=== PATIENT | female | born 1995 | race American Indian/Alaskan Native ===

== ENCOUNTER 2017-01-24 16:18 | Emergency (ER) | payer BC, OTHER ==
--- NOTE | 2017-01-24 17:11 | EDM.PDOC ---
ED HPI ENT - General Chief Complaint: ENT Problem Stated Complaint: TOOTH PAIN Time Seen by Provider: 01/24/17 16:56 Source of Information: Reports: Patient History Limitations: Reports: No limitations - History of Present Illness INITIAL COMMENTS - FREE TEXT/NARRATIVE: Patient presents for evaluation and treatment of the chipped tooth. Patient was eating some toast this morning when she chipped her tooth. She states that she felt something hard come out of the tooth. She states that since then she has developed severe shooting pain to her right upper molars. States the pain is shooting up into her ear. She states that drinking cold beverages improve the pain. She has tried aleve and clove oil without any relief. She did try calling her dentist both only able to get into a dentist in [place] next week. She reports nausea from the pain. She denies any fevers, chills or vomiting. Patient is concerned she may have a dental infection. 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 Denies: Vomiting ED EXAM, ENT - Physical Exam Exam: See Below Exam Limited By: No limitations General Appearance: alert, WD/WN, no apparent distress Ears: normal external exam, normal canal, hearing grossly normal, normal TMs Nose: normal inspection Mouth/Throat: Normal inspection, Normal lips, Normal oropharynx, Dental pain, Dental trauma (#2 and #3 are broken; no abscess appreciated, ). No: Dental abcess Respiratory/Chest: no respiratory distress, lungs clear, normal breath sounds Cardiovascular: normal peripheral pulses, regular rate, rhythm, no murmur Neurological: alert, oriented, normal cognition Psychiatric: normal affect, normal mood Skin: Warm, Dry, Normal color Course - Vital Signs Last Recorded V/S: Last Vital Signs Temp 36.6 C 01/24/17 16:26 Pulse 81 01/24/17 16:26 Resp 16 01/24/17 16:26 BP 126/83 01/24/17 16:26 Pulse Ox 97 01/24/17 16:26 Departure - Departure Time of Disposition: 17:06 Disposition: Home, Self-Care 01 Condition: good Clinical Impression: Pain, dental, Broken tooth Prescriptions: Acetaminophen/oxyCODONE [Percocet 325-5 MG] 1 tab PO Q6H PRN #15 tablet PRN Reason: Pain Chlorhexidine Gluconate [Paroex] 473 ml MM BID #1 bottle Instructions: Tooth Injuries, [id number] Referrals: PCP,Not In Area [Primary Care Provider] - Forms: ED Department Discharge Additional Instructions: Follow-up with dental as soon as you are able. Take OTC ibuprofen 600mg every 6 hours. Take the percocet 1/2 to 1 tab PO every 4-6 hours as needed for severe pain. No driving or operating machinery within 12 hours of taking the percocet. Take as few of the percocet as needed to control your pain as percocet can be habit forming. Mouth wash 15mls swish for 30 sec and spit. Use bid. Please return to the ER should your symptoms change or worsen. In particular return for vomiting, fevers, swelling to the face or any other concerning symptom.
== END 2017-01-24 17:30 | disposition home or self-care (01) ==
LOC: JD.ED 16:18
CPT/HCPCS: 99283

== ENCOUNTER 2018-04-20 01:28 | Inpatient (IN) | payer BC ==
[2018-04-20] MEDS ORDERED: diphenhydrAMINE 50 MG/ML SDV IVPUSH PRN (02:04)
[2018-04-20] MEDS ORDERED: ePHEDrine 50 MG/ML SDV IVPUSH PRN (02:04)
[2018-04-20] MEDS ORDERED: Ondansetron 4 MG/2 ML SDV IVPUSH PRN (02:04)
[2018-04-20] MEDS ORDERED: fentaNYL 100 MCG/2 ML SDV EPIDUR PRN (02:04)
[2018-04-20] MEDS ORDERED: Sodium Chloride 0.9% 10 ML Syringe FLUSH PRN (02:09)
[2018-04-20] MEDS ORDERED: Oxytocin/Lactated Ringers 10 UNIT/1,000 ML BAG IV SCH (02:15)
[2018-04-20] MEDS ORDERED: Bupivacaine/fentaNYL/NS 100 ML Bag EPIDUR SCH (02:15)
--- NOTE | 2018-04-20 02:32 | PCM.PREANE ---
Preanesthetic Assessment - Anesthesia/Transfusion/Family Hx Anesthesia History: Prior Anesthesia Without Reaction Family History of Anesthesia Reaction: No - Review of Systems General: No Symptoms Pulmonary: No Symptoms Cardiovascular: No Symptoms Gastrointestinal: No Symptoms Neurological: No Symptoms Other: Reports: None - Physical Assessment Pulse: 81 O2 Sat by Pulse Oximetry: 98 Respiratory Rate: 16 Blood Pressure: 124/80 Height: 1.63 m Weight: 102.512 kg ASA Class: 2 Mental Status: Alert & Oriented x3 Airway Class: Mallampati = 2 Dentition: Reports: Missing Tooth/Teeth Thyro-Mental Finger Breadths: 3 Mouth Opening Finger Breadths: 3 ROM/Head Extension: Full Lungs: Clear to Auscultation, Normal Respiratory Effort Cardiovascular: Regular Rate, Regular Rhythm - Lab Values: Labs pending. Will review prior to epidural. 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 - HOME MEDS Home Medications: Home Meds Iron 5 mg PO DAILY 08/28/15 [History] Vit with Ca/FA/Iron [ Plus Iron] 1 each PO DAILY #30 tablet 03/10 [Rx] Acetaminophen/oxyCODONE [Percocet 325-5 MG] 1 tab PO Q6H PRN #15 tablet [Rx] Chlorhexidine Gluconate [Paroex] 473 ml MM BID #1 bottle 01/24/17 [Rx] - CURRENT (IN HOUSE) MEDS Current Meds: Current Medications Diphenhydramine HCl (Benadryl) 25 mg IVPUSH Q6H PRN PRN Reason: Pruritis Ephedrine Sulfate (Ephedrine Sulfate) 5 mg IVPUSH ASDIRECTED PRN PRN Reason: Hypotension Fentanyl (Sublimaze) 100 mcg EPIDUR ONETIME PRN PRN Reason: Pain Fentanyl/Bupivacaine HCl (Fentanyl/Bupivacaine/Ns 2 Mcg-0.125% 100 Ml) 100 ml EPIDUR ASDIRECTED [facility] Lactated Ringer's (Ringers, Lactated) 1,000 mls @ 100 mls/hr IV ASDIRECTED [facility] Oxytocin/Lactated Ringer's (Pitocin In Lr 10 Units/1,000 Ml) 10 unit in 1,000 mls @ 500 mls/hr IV .CONTINUOUS [facility] Ondansetron HCl (Zofran) 4 mg IVPUSH ONETIME PRN PRN Reason: Nausea/Vomiting Sodium Chloride (Saline Flush) 10 ml FLUSH ASDIRECTED PRN PRN Reason: Keep Vein Open
[2018-04-20] MEDS: Lactated Ringers 1,000 ML IV SCH ×3 (02:47→06:34)
--- NOTE | 2018-04-20 09:01 | PCM.LDHP ---
L&D History of Present Illness - General Date of Service: 04/20/18 Admit Problem/Dx: Patient Status Order with Admit Dx/Problem 04/20/18 02:09 Patient Status [ADT] Routine Admission Diagnosis/Problem Admission Diagnosis/Problem Source of Information: Patient History Limitations: Reports: No Limitations - History of Present Illness Introduction:: 22-year-old GRAHAM 04/22/18 at 39 weeks and 5 days gestation presented to labor and delivery in active labor 5 cm dilated contractions every 3 minutes lasting approximate 60 seconds blood type is O+ antibody screen negative rubella immune RPR nonreactive group B strep not detected on 03/21/18. The hemoglobin on 02/12/1810.9. Plan delivery. Location, : Reports: Abdomen, Lower back Quality: Reports: Ache, Pressure Pain Score: 5 Improves with: Reports: None Worsens with: Reports: None Associated Symptoms: Reports: N - Related Data Allergies/Adverse Reactions: Allergies Allergy/AdvReac Type Severity Reaction Status Date / Time No Known Allergies Allergy Verified 08/28/15 22:45 Home Medications: Home Meds Iron 5 mg PO DAILY 08/28/15 [History] Vit with Ca/FA/Iron [ Plus Iron] 1 each PO DAILY #30 tablet 03/10 [Rx] Acetaminophen/oxyCODONE [Percocet 325-5 MG] 1 tab PO Q6H PRN #15 tablet [Rx] Chlorhexidine Gluconate [Paroex] 473 ml MM BID #1 bottle 01/24/17 [Rx] Past Medical History HEENT History: Reports: None Cardiovascular History: Reports: None Respiratory History: Reports: None Gastrointestinal History: Reports: None Genitourinary History: Reports: UTI, Recurrent Other Genitourinary History: No UTIs with this , yet, many prior and with prior pregnancies. 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 No depression s/s this . Endocrine/Metabolic History: Reports: None Hematologic History: Reports: Anemia, Other (See Below) Other Hematologic History: Received an Iron Infusion @ [place] this secondary to anemia. Immunologic History: Reports: None Oncologic (Cancer) History: Reports: None Dermatologic History: Reports: None - Past Surgical History Head Surgeries/Procedures: Reports: None HEENT Surgical History: Reports: Oral Surgery Other HEENT Surgeries/Procedures: [place] teeth extracted 2009 Cardiovascular Surgical History: Reports: None Respiratory Surgical History: Reports: None GI Surgical History: Reports: None Female Surgical History: Reports: None Endocrine Surgical History: Reports: None Neurological Surgical History: Reports: None Musculoskeletal Surgical History: Reports: None Oncologic Surgical History: Reports: None Dermatological Surgical History: Reports: None Social & Family History - Family History Family Medical History: Noncontributory - Tobacco Use Smoking Status *Q: Former Smoker Years of Tobacco use: 2 Packs/Tins Daily: 0.1 Used Tobacco, but Quit: Yes Month/Year Tobacco Last Used: 06/2017 Second Hand Smoke Exposure: No - Caffeine Use Caffeine Use: Reports: Coffee, Soda Other Caffeine Use: Occasional - Recreational Drug Use Recreational Drug Use: No H&P Review of Systems - Review of Systems: Review Of Systems: See Below General: Reports: No Symptoms HEENT: Reports: No Symptoms Pulmonary: Reports: No Symptoms Cardiovascular: Reports: No Symptoms Gastrointestinal: Reports: No Symptoms Genitourinary: Reports: No Symptoms Musculoskeletal: Reports: No Symptoms Skin: Reports: No Symptoms Psychiatric: Reports: No Symptoms Neurological: Reports: No Symptoms Hematologic/Lymphatic: Reports: No Symptoms Immunologic: Reports: No Symptoms L&D Exam - Exam Exam: See Below - Vital Signs Vital Signs: Last Vital Signs Temp Pulse 81 04/20/18 02:32 Resp 16 04/20/18 02:32 BP 124/80 04/20/18 02:32 Pulse Ox 98 04/20/18 02:32 Weight: 226 lb - OB Specific Fundal Height In cm: 38 Contraction Duration (sec): 60 Contraction Frequency (min): 3 Contraction Intensity: Moderate to Strong Movement: Active Heart Tones: Present Heart Tones per Min: 135 Heart Rate (FHR) Variability: Moderate (6-25 bmp) Presentation: Vertex - Maldonado Score Maldonado Score Cervix Position: Anterior Maldonado Score Consistency: Soft Maldonado Score Effacement: >80% Maldonado Score Dilation: > 5 cm Maldonado Score 's Station: -1 ,0 Maldonado Score Total: 12 - Exam General: Alert, Oriented HEENT: Conjunctiva Clear, Mucosa Moist & [place], Posterior Pharynx Clear, TMs Clear, PERRLA Neck: Supple, Trachea Midline Lungs: Clear to Auscultation, Normal Respiratory Effort Cardiovascular: Regular Rate, Regular Rhythm GI/Abdominal Exam: Normal Bowel Sounds, Soft, Non-Tender, No Organomegaly Genitourinary: Normal external exam, Normal bimanual exam, Normal speculum exam Back Exam: Full Range of Motion Extremities: Normal Inspection, Normal Range of Motion, Non-Tender, No Pedal Edema, Normal Capillary Refill Skin: Warm, Dry, Intact Neurological: Reflexes Equal Bilateral Psychiatric: Alert, Normal Affect, Normal Mood - Patient Data Lab Results Last 24 hrs: Laboratory Results - last 24 hr 04/20/18 Range/Units 02:15 WBC 10.66 H (3.98-10.04) K/mm3 RBC 4.72 (3.98-5.22) M/mm3 Hgb 10.1 L (11.2-15.7) gm/L Hct 32.7 L (34.1-44.9) % MCV 69.3 L (79.4-94.8) fl MCH 21.4 L (25.6-32.2) pg MCHC 30.9 L (32.2-35.5) g/dl RDW Std Deviation 46.9 H (36.4-46.3) fL Plt Count 315 (182-369) K/mm3 MPV 10.8 (9.4-12.3) fl Neut % (Auto) 75.9 H (34.0-71.1) % Lymph % (Auto) 14.1 L (19.3-51.7) % [place] % (Auto) 8.4 (4.7-12.5) % Eos % (Auto) 1.2 (0.7-5.8) Baso % (Auto) 0.1 (0.1-1.2) % Neut # (Auto) 8.09 H (1.56-6.13) K/mm3 Lymph # (Auto) 1.50 (1.18-3.74) K/mm3 [place] # (Auto) 0.90 H (0.24-0.36) K/mm3 Eos # (Auto) 0.13 (0.04-0.36) K/mm3 Baso # (Auto) 0.01 (0.01-0.08) K/mm3 Manual Slide Review Abnormal smear Result Diagrams: 04/20/18 02:15 - Problem List (1) 39 weeks gestation of SNOMED Code(s): 21863508 ICD Code: Z3A.39 - 39 WEEKS GESTATION OF Status: Acute Current Visit: Yes Problem List Initiated/Reviewed/Updated: No Orders Last 24hrs: Active Orders 24 hr Category Date Time Status Patient Status [ADT] Routine ADT 04/20/18 02:09 Active Activity as Tolerated [RC] PFP Care 04/20/18 02:09 Active Communication Order [RC] ASDIRECTED Care 04/20/18 02:09 Active Heart Tones [RC] ASDIRECTED Care 04/20/18 02:10 Active Notify Provider [RC] ASDIRECTED Care 04/20/18 02:04 Active Notify Provider [RC] PFP Care 04/20/18 02:09 Active Notify Provider [RC] PRN Care 04/20/18 02:09 Active Peripheral IV Care [RC] . DIRECTED Care 04/20/18 02:10 Active Vital Signs [RC] PER UNIT ROUTINE Care 04/20/18 02:09 Active BLOOD BANK HOLD SPECIMEN [BBK] Routine Lab 04/20/18 02:09 Ordered Bupivacaine/fentaNYL/NS [fentaNYL/Bupivacaine/NS 2 MCG- Med 04/20/18 02:15 Active 0.125% 100 ML] 100 ml EPIDUR ASDIRECTED Lactated Ringers [Ringers, Lactated] 1,000 ml Med 04/20/18 02:15 Active IV ASDIRECTED Ondansetron [Zofran] Med 04/20/18 02:04 Active 4 mg IVPUSH ONETIME PRN Oxytocin/Lactated Ringers [Pitocin in LR 10 Units/1,000 Med 04/20/18 02:15 Active ML] 10 unit in 1,000 ml IV .CONTINUOUS Sodium Chloride 0.9% [Saline Flush] Med 04/20/18 02:09 Active 10 ml FLUSH ASDIRECTED PRN diphenhydrAMINE [Benadryl] Med 04/20/18 02:04 Active 25 mg IVPUSH Q6H PRN ePHEDrine [ePHEDrine Sulfate] Med 04/20/18 02:04 Active 5 mg IVPUSH ASDIRECTED PRN fentaNYL [Sublimaze] Med 04/20/18 02:04 Active 100 mcg EPIDUR ONETIME PRN Electronic Heart Tones Ext w TOCO [WOMSER] Oth 04/20/18 02:09 Ordered Routine Electronic Heart Tones Internal [WOMSER] Per Unit Ot 04/20/18 02:09 Ordered Routine Peripheral IV Insertion Adult [OM.PC] Routine Ot 04/20/18 02:09 Ordered Resuscitation Status Routine Resus Stat 04/20/18 02:09 Ordered Medication Orders Diphenhydramine HCl (Benadryl) 25 mg IVPUSH Q6H PRN PRN Reason: Pruritis Ephedrine Sulfate (Ephedrine Sulfate) 5 mg IVPUSH ASDIRECTED PRN PRN Reason: Hypotension Fentanyl (Sublimaze) 100 mcg EPIDUR ONETIME PRN PRN Reason: Pain Last Admin: 04/20/18 04:04 Dose: 100 mcg Fentanyl/Bupivacaine HCl (Fentanyl/Bupivacaine/Ns 2 Mcg-0.125% 100 Ml) 100 ml EPIDUR ASDIRECTED [facility] Last Admin: 04/20/18 04:04 Dose: 100 ml Lactated Ringer's (Ringers, Lactated) 1,000 mls @ 100 mls/hr IV ASDIRECTED LANDON Last Admin: 04/20/18 06:34 Dose: 100 mls/hr Infusion: 04/20/18 04:24 Dose: 999 mls/hr Admin: 04/20/18 03:23 Dose: 999 mls/hr Infusion: 04/20/18 03:23 Dose: 999 mls/hr Admin: 04/20/18 02:47 Dose: 999 mls/hr Oxytocin/Lactated Ringer's (Pitocin In Lr 10 Units/1,000 Ml) 10 unit in 1,000 mls @ 500 mls/hr IV .CONTINUOUS [facility] Ondansetron HCl (Zofran) 4 mg IVPUSH ONETIME PRN PRN Reason: Nausea/Vomiting Sodium Chloride (Saline Flush) 10 ml FLUSH ASDIRECTED PRN PRN Reason: Keep Vein Open Assessment/Plan Comment:: Plan delivery
--- NOTE | 2018-04-20 09:06 | PCM.DEL ---
L & D Note - General Info Date of Service: 04/20/18 Mother's Due Date: 04/22/18 - Delivery Note Labor: Spontaneous Delivery Outcome: Livebirth (Male liveborn 04/20/18 at 0813 hrs. male liveborn 30 /8/50 grams 8 pounds 7.8 ounces Apgars 8/9) Infant Delivery Method: Spontaneous Vaginal Delivery-Single Delivery Mode: Spontaneous Presentation: Left Occiput Anterior (ANA) Nuchal Cord: Present (Times one reduced over shoulder) Anesthesia Type: Epidural Episiotomy Type: None Laceration: None Placenta: Intact, Spontaneous (0815 hrs. Schultze intact discarded) Cord: 3 Vessels Estimated Blood Loss: 250 Resuscitation Needed: No : Suctioned, Bulb Syringe, Stimulated, Warmed, [place] Used, Warmer Used Provider: Shreyas James Score 1 min: 8 Score 5 min: 9 - General Info Date of Service: 04/20/18 Functional Status: Reports: Pain Controlled - Review of Systems General: Reports: No Symptoms HEENT: Reports: No Symptoms Pulmonary: Reports: No Symptoms Cardiovascular: Reports: No Symptoms Gastrointestinal: Reports: No Symptoms Genitourinary: Reports: No Symptoms Musculoskeletal: Reports: No Symptoms Skin: Reports: No Symptoms Neurological: Reports: No Symptoms Psychiatric: Reports: No Symptoms - Patient Data Vitals - Most Recent: Last Vital Signs Temp Pulse 81 04/20/18 02:32 Resp 16 04/20/18 02:32 BP 124/80 04/20/18 02:32 Pulse Ox 98 04/20/18 02:32 Weight - Most Recent: 226 lb I&O - Last 24 Hours: Intake & Output 04/19/18 04/20/18 04/20/18 22:59 06:59 14:59 Intake Total 1999 Balance 1999 Lab Results Last 24 Hours: Laboratory Results - last 24 hr 04/20/18 Range/Units 02:15 WBC 10.66 H (3.98-10.04) K/mm3 RBC 4.72 (3.98-5.22) M/mm3 Hgb 10.1 L (11.2-15.7) gm/L Hct 32.7 L (34.1-44.9) % MCV 69.3 L (79.4-94.8) fl MCH 21.4 L (25.6-32.2) pg MCHC 30.9 L (32.2-35.5) g/dl RDW Std Deviation 46.9 H (36.4-46.3) fL Plt Count 315 (182-369) K/mm3 MPV 10.8 (9.4-12.3) fl Neut % (Auto) 75.9 H (34.0-71.1) % Lymph % (Auto) 14.1 L (19.3-51.7) % [place] % (Auto) 8.4 (4.7-12.5) % Eos % (Auto) 1.2 (0.7-5.8) Baso % (Auto) 0.1 (0.1-1.2) % Neut # (Auto) 8.09 H (1.56-6.13) K/mm3 Lymph # (Auto) 1.50 (1.18-3.74) K/mm3 [place] # (Auto) 0.90 H (0.24-0.36) K/mm3 Eos # (Auto) 0.13 (0.04-0.36) K/mm3 Baso # (Auto) 0.01 (0.01-0.08) K/mm3 Manual Slide Review Abnormal smear Med Orders - Current: Current Medications Diphenhydramine HCl (Benadryl) 25 mg IVPUSH Q6H PRN PRN Reason: Pruritis Ephedrine Sulfate (Ephedrine Sulfate) 5 mg IVPUSH ASDIRECTED PRN PRN Reason: Hypotension Fentanyl (Sublimaze) 100 mcg EPIDUR ONETIME PRN PRN Reason: Pain Last Admin: 04/20/18 04:04 Dose: 100 mcg Fentanyl/Bupivacaine HCl (Fentanyl/Bupivacaine/Ns 2 Mcg-0.125% 100 Ml) 100 ml EPIDUR ASDIRECTED [facility] Last Admin: 04/20/18 04:04 Dose: 100 ml Lactated Ringer's (Ringers, Lactated) 1,000 mls @ 100 mls/hr IV ASDIRECTED [facility] Last Admin: 04/20/18 06:34 Dose: 100 mls/hr Oxytocin/Lactated Ringer's (Pitocin In Lr 10 Units/1,000 Ml) 10 unit in 1,000 mls @ 500 mls/hr IV .CONTINUOUS [place] Ondansetron HCl (Zofran) 4 mg IVPUSH ONETIME PRN PRN Reason: Nausea/Vomiting Sodium Chloride (Saline Flush) 10 ml FLUSH ASDIRECTED PRN PRN Reason: Keep Vein Open - Problem List & Annotations (1) 39 weeks gestation of SNOMED Code(s): 67921148 Code(s): Z3A.39 - 39 WEEKS GESTATION OF Status: Acute Current Visit: Yes (2) Meconium stained amniotic fluid, delivered, current hospitalization SNOMED Code(s): 898174544 Code(s): O77.0 - LABOR AND DELIVERY COMPLICATED BY MECONIUM IN AMNIOTIC FLUID Status: Acute Current Visit: Yes (3) Nuchal cord, delivered, current hospitalization SNOMED Code(s): 413073266, 712101729 Code(s): O69.81X0 - LABOR AND DEL COMP BY CORD AROUND NECK, W/O COMPRSN, UNSP Status: Acute Current Visit: Yes - Problem List Review Problem List Initiated/Reviewed/Updated: No - My Orders Last 24 Hours: My Active Orders 04/20/18 02:09 Patient Status [ADT] Routine Activity as Tolerated [RC] PFP Communication Order [RC] ASDIRECTED Notify Provider [RC] PFP Notify Provider [RC] PRN Vital Signs [RC] PER UNIT ROUTINE BLOOD BANK HOLD SPECIMEN [BBK] Routine Sodium Chloride 0.9% [Saline Flush] 10 ml FLUSH ASDIRECTED PRN Electronic Heart Tones Ext w TOCO [WOMSER] Routine Electronic Heart Tones Internal [WOMSER] Per Unit Routine Peripheral IV Insertion Adult [OM.PC] Routine Resuscitation Status Routine 04/20/18 02:10 Heart Tones [RC] ASDIRECTED Peripheral IV Care [RC] . DIRECTED 04/20/18 02:15 Lactated Ringers [Ringers, Lactated] 1,000 ml IV ASDIRECTED Oxytocin/Lactated Ringers [Pitocin in LR 10 Units/1,000 ML] 10 unit in 1,000 ml IV .CONTINUOUS - Plan Plan:: Plan delivery
[2018-04-20] MEDS ORDERED: Benzocaine/Menthol 20%-0.5% Spray 56 GM Canister TOP PRN (21:58)
[2018-04-20] MEDS ORDERED: Ibuprofen 600 MG Tab PO PRN (21:59)
[2018-04-20] MEDS ORDERED: Witch Hazel Medicated Pads 100/Jar TOP PRN (22:01)
[2018-04-21 03:49] VITALS: BP 114/76
--- NOTE | 2018-04-21 10:24 | PCM.DCSUM1 ---
Discharge Summary - Hospital Course Free Text/Narrative:: [facility] LIVE L/D Delivery Note Patient Name: RASHEED SANDHU Date of : 89 Patient Status: Inpatient Attending Provider: Shreyas James Date: 04/20/18 09:02 Initialization Date: 04/20/18 09:02 L & D Note - General Info Date of Service: 04/20/18 Mother's Due Date: 04/22/18 - Delivery Note Labor: Spontaneous Delivery Outcome: Livebirth (Male liveborn 04/20/18 at 0813 hrs. male liveborn 30 /8/50 grams 8 pounds 7.8 ounces Apgars 8/9) Delivery Method: Spontaneous Vaginal Delivery-Single Infant Delivery Mode: Spontaneous Presentation: Left Occiput Anterior (ANA) Nuchal Cord: Present (Times one reduced over shoulder) Anesthesia Type: Epidural Episiotomy Type: None Laceration: None Placenta: Intact, Spontaneous (0815 hrs. Schultze intact discarded) Cord: 3 Vessels Estimated Blood Loss: 250 Resuscitation Needed: No : Suctioned, Bulb Syringe, Stimulated, Warmed, [place] Used, Warmer Used Provider: Shreyas James Score 1 min: 8 Score 5 min: 9 - General Info Date of Service: 04/20/18 Functional Status: Reports: Pain Controlled - Review of Systems General: Reports: No Symptoms HEENT: Reports: No Symptoms Pulmonary: Reports: No Symptoms Cardiovascular: Reports: No Symptoms Gastrointestinal: Reports: No Symptoms Genitourinary: Reports: No Symptoms Musculoskeletal: Reports: No Symptoms Skin: Reports: No Symptoms Neurological: Reports: No Symptoms Psychiatric: Reports: No Symptoms - Patient Data Vitals - Most Recent: Last Vital Signs Temp Pulse 81 04/20/18 02:32 Resp 16 04/20/18 02:32 BP 124/80 04/20/18 02:32 Pulse Ox 98 04/20/18 02:32 Weight - Most Recent: 226 lb I&O - Last 24 Hours: Intake & Output 04/19/18 04/20/18 04/20/18 22:59 06:59 14:59 Intake Total 1999 Balance 1999 Lab Results Last 24 Hours: Laboratory Results - last 24 hr 04/20/18 Range/Units 02:15 WBC 10.66 H (3.98-10.04) K/mm3 RBC 4.72 (3.98-5.22) M/mm3 Hgb 10.1 L (11.2-15.7) gm/L Hct 32.7 L (34.1-44.9) % MCV 69.3 L (79.4-94.8) fl MCH 21.4 L (25.6-32.2) pg MCHC 30.9 L (32.2-35.5) g/dl RDW Std Deviation 46.9 H (36.4-46.3) fL Plt Count 315 (182-369) K/mm3 MPV 10.8 (9.4-12.3) fl Neut % (Auto) 75.9 H (34.0-71.1) % Lymph % (Auto) 14.1 L (19.3-51.7) % [place] % (Auto) 8.4 (4.7-12.5) % Eos % (Auto) 1.2 (0.7-5.8) Baso % (Auto) 0.1 (0.1-1.2) % Neut # (Auto) 8.09 H (1.56-6.13) K/mm3 Lymph # (Auto) 1.50 (1.18-3.74) K/mm3 [place] # (Auto) 0.90 H (0.24-0.36) K/mm3 Eos # (Auto) 0.13 (0.04-0.36) K/mm3 Baso # (Auto) 0.01 (0.01-0.08) K/mm3 Manual Slide Review Abnormal smear Med Orders - Current: Current Medications Diphenhydramine HCl (Benadryl) 25 mg IVPUSH Q6H PRN PRN Reason: Pruritis Ephedrine Sulfate (Ephedrine Sulfate) 5 mg IVPUSH ASDIRECTED PRN PRN Reason: Hypotension Fentanyl (Sublimaze) 100 mcg EPIDUR ONETIME PRN PRN Reason: Pain Last Admin: 04/20/18 04:04 Dose: 100 mcg Fentanyl/Bupivacaine HCl (Fentanyl/Bupivacaine/Ns 2 Mcg-0.125% 100 Ml) 100 ml EPIDUR ASDIRECTED LANDON Last Admin: 04/20/18 04:04 Dose: 100 ml Lactated Ringer's (Ringers, Lactated) 1,000 mls @ 100 mls/hr IV ASDIRECTED [place]ANDON Last Admin: 04/20/18 06:34 Dose: 100 mls/hr Oxytocin/Lactated Ringer's (Pitocin In Lr 10 Units/1,000 Ml) 10 unit in 1,000 mls @ 500 mls/hr IV .CONTINUOUS [place]ON Ondansetron HCl (Zofran) 4 mg IVPUSH ONETIME PRN PRN Reason: Nausea/Vomiting Sodium Chloride (Saline Flush) 10 ml FLUSH ASDIRECTED PRN PRN Reason: Keep Vein Open - Problem List & Annotations (1) 39 weeks gestation of SNOMED Code(s): 65332985 Code(s): Z3A.39 - 39 WEEKS GESTATION OF Status: Acute Current Visit: Yes (2) Meconium stained amniotic fluid, delivered, current hospitalization SNOMED Code(s): 262374260 Code(s): O77.0 - LABOR AND DELIVERY COMPLICATED BY MECONIUM IN AMNIOTIC FLUID Status: Acute Current Visit: Yes (3) Nuchal cord, delivered, current hospitalization SNOMED Code(s): 566459730, 435077075 Code(s): O69.81X0 - LABOR AND DEL COMP BY CORD AROUND NECK, W/O COMPRSN, UNSP Status: Acute Current Visit: Yes - Problem List Review Problem List Initiated/Reviewed/Updated: No - My Orders Last 24 Hours: My Active Orders 04/20/18 02:09 Patient Status [ADT] Routine Activity as Tolerated [RC] PFP Communication Order [RC] ASDIRECTED Notify Provider [RC] PFP Notify Provider [RC] PRN Vital Signs [RC] PER UNIT ROUTINE BLOOD BANK HOLD SPECIMEN [BBK] Routine Sodium Chloride 0.9% [Saline Flush] 10 ml FLUSH ASDIRECTED PRN Electronic Heart Tones Ext w TOCO [WOMSER] Routine Electronic Heart Tones Internal [WOMSER] Per Unit Routine Peripheral IV Insertion Adult [OM.PC] Routine Resuscitation Status Routine 04/20/18 02:10 Heart Tones [RC] ASDIRECTED Peripheral IV Care [RC] . DIRECTED 04/20/18 02:15 Lactated Ringers [Ringers, Lactated] 1,000 ml IV ASDIRECTED Oxytocin/Lactated Ringers [Pitocin in LR 10 Units/1,000 ML] 10 unit in 1,000 ml IV .CONTINUOUS - Plan Plan:: Plan delivery HPI Initial Comments: [facility] LIVE L/D Delivery Note Patient Name: RASHEED SANDHU Date of : 89 Patient Status: Inpatient Attending Provider: Shreyas James Date: 04/20/18 09:02 Initialization Date: 04/20/18 09:02 L & D Note - General Info Date of Service: 04/20/18 Mother's Due Date: 04/22/18 - Delivery Note Labor: Spontaneous Delivery Outcome: Livebirth (Male liveborn 04/20/18 at 0813 hrs. male liveborn 30 /8/50 grams 8 pounds 7.8 ounces Apgars 8/9) Delivery Method: Spontaneous Vaginal Delivery-Single Infant Delivery Mode: Spontaneous Presentation: Left Occiput Anterior (ANA) Nuchal Cord: Present (Times one reduced over shoulder) Anesthesia Type: Epidural Episiotomy Type: None Laceration: None Placenta: Intact, Spontaneous (0815 hrs. Schultze intact discarded) Cord: 3 Vessels Estimated Blood Loss: 250 Resuscitation Needed: No : Suctioned, Bulb Syringe, Stimulated, Warmed, [place] Used, Warmer Used Provider: Shreyas James Score 1 min: 8 Score 5 min: 9 - General Info Date of Service: 04/20/18 Functional Status: Reports: Pain Controlled - Review of Systems General: Reports: No Symptoms HEENT: Reports: No Symptoms Pulmonary: Reports: No Symptoms Cardiovascular: Reports: No Symptoms Gastrointestinal: Reports: No Symptoms Genitourinary: Reports: No Symptoms Musculoskeletal: Reports: No Symptoms Skin: Reports: No Symptoms Neurological: Reports: No Symptoms Psychiatric: Reports: No Symptoms - Patient Data Vitals - Most Recent: Last Vital Signs Temp Pulse 81 04/20/18 02:32 Resp 16 04/20/18 02:32 BP 124/80 04/20/18 02:32 Pulse Ox 98 04/20/18 02:32 Weight - Most Recent: 226 lb I&O - Last 24 Hours: Intake & Output 04/19/18 04/20/18 04/20/18 22:59 06:59 14:59 Intake Total 1999 Balance 1999 Lab Results Last 24 Hours: Laboratory Results - last 24 hr 04/20/18 Range/Units 02:15 WBC 10.66 H (3.98-10.04) K/mm3 RBC 4.72 (3.98-5.22) M/mm3 Hgb 10.1 L (11.2-15.7) gm/L Hct 32.7 L (34.1-44.9) % MCV 69.3 L (79.4-94.8) fl MCH 21.4 L (25.6-32.2) pg MCHC 30.9 L (32.2-35.5) g/dl RDW Std Deviation 46.9 H (36.4-46.3) fL Plt Count 315 (182-369) K/mm3 MPV 10.8 (9.4-12.3) fl Neut % (Auto) 75.9 H (34.0-71.1) % Lymph % (Auto) 14.1 L (19.3-51.7) % [place] % (Auto) 8.4 (4.7-12.5) % Eos % (Auto) 1.2 (0.7-5.8) Baso % (Auto) 0.1 (0.1-1.2) % Neut # (Auto) 8.09 H (1.56-6.13) K/mm3 Lymph # (Auto) 1.50 (1.18-3.74) K/mm3 [place] # (Auto) 0.90 H (0.24-0.36) K/mm3 Eos # (Auto) 0.13 (0.04-0.36) K/mm3 Baso # (Auto) 0.01 (0.01-0.08) K/mm3 Manual Slide Review Abnormal smear Med Orders - Current: Current Medications Diphenhydramine HCl (Benadryl) 25 mg IVPUSH Q6H PRN PRN Reason: Pruritis Ephedrine Sulfate (Ephedrine Sulfate) 5 mg IVPUSH ASDIRECTED PRN PRN Reason: Hypotension Fentanyl (Sublimaze) 100 mcg EPIDUR ONETIME PRN PRN Reason: Pain Last Admin: 04/20/18 04:04 Dose: 100 mcg Fentanyl/Bupivacaine HCl (Fentanyl/Bupivacaine/Ns 2 Mcg-0.125% 100 Ml) 100 ml EPIDUR ASDIRECTED [facility] Last Admin: 04/20/18 04:04 Dose: 100 ml Lactated Ringer's (Ringers, Lactated) 1,000 mls @ 100 mls/hr IV ASDIRECTED [facility] Last Admin: 04/20/18 06:34 Dose: 100 mls/hr Oxytocin/Lactated Ringer's (Pitocin In Lr 10 Units/1,000 Ml) 10 unit in 1,000 mls @ 500 mls/hr IV .CONTINUOUS [facility] Ondansetron HCl (Zofran) 4 mg IVPUSH ONETIME PRN PRN Reason: Nausea/Vomiting Sodium Chloride (Saline Flush) 10 ml FLUSH ASDIRECTED PRN PRN Reason: Keep Vein Open - Problem List & Annotations (1) 39 weeks gestation of SNOMED Code(s): 53234875 Code(s): Z3A.39 - 39 WEEKS GESTATION OF Status: Acute Current Visit: Yes (2) Meconium stained amniotic fluid, delivered, current hospitalization SNOMED Code(s): 841787842 Code(s): O77.0 - LABOR AND DELIVERY COMPLICATED BY MECONIUM IN AMNIOTIC FLUID Status: Acute Current Visit: Yes (3) Nuchal cord, delivered, current hospitalization SNOMED Code(s): 554966090, 912483305 Code(s): O69.81X0 - LABOR AND DEL COMP BY CORD AROUND NECK, W/O COMPRSN, UNSP Status: Acute Current Visit: Yes - Problem List Review Problem List Initiated/Reviewed/Updated: No - My Orders Last 24 Hours: My Active Orders 04/20/18 02:09 Patient Status [ADT] Routine Activity as Tolerated [RC] PFP Communication Order [RC] ASDIRECTED Notify Provider [RC] PFP Notify Provider [RC] PRN Vital Signs [RC] PER UNIT ROUTINE BLOOD BANK HOLD SPECIMEN [BBK] Routine Sodium Chloride 0.9% [Saline Flush] 10 ml FLUSH ASDIRECTED PRN Electronic Heart Tones Ext w TOCO [WOMSER] Routine Electronic Heart Tones Internal [WOMSER] Per Unit Routine Peripheral IV Insertion Adult [OM.PC] Routine Resuscitation Status Routine 04/20/18 02:10 Heart Tones [RC] ASDIRECTED Peripheral IV Care [RC] . DIRECTED 04/20/18 02:15 Lactated Ringers [Ringers, Lactated] 1,000 ml IV ASDIRECTED Oxytocin/Lactated Ringers [Pitocin in LR 10 Units/1,000 ML] 10 unit in 1,000 ml IV .CONTINUOUS - Plan Plan:: Plan delivery Brief History: [facility] LIVE . L[facility]D [facility]. [facility] [id number]. Date of : Patient Status: Inpatient. Attending [facility] Number: [id number]. Date: 04/20/18 09:02Initialization Date: 04/20/18 09:02. L & D Note. - General Info. Date of Service: 04/20/18. Mother's Due Date: 04/22/18. - Delivery Note. Labor: Spontaneous. Delivery Outcome: Livebirth ( Male liveborn 04/20/18 at 0813 hrs. male liveborn 30/8/50 grams 8 pounds 7.8 ounces Apgars 8/9). Delivery Method: Spontaneous Vaginal Delivery- Single. Delivery Mode: Spontaneous. Presentation: Left Occiput Anterior (ANA). Nuchal Cord: Present (Times one reduced over shoulder). Anesthesia Type: Epidural. Episiotomy Type: None. Laceration: None. Placenta : Intact, Spontaneous (0815 hrs. Schultze intact discarded). Cord: 3 Vessels. Estimated Blood Loss: 250. Resuscitation Needed: No. [place]: Suctioned, Bulb Syringe, Stimulated, Warmed, [place] Used, Warmer Used. Provider: Shreyas James. Score 1 min: 8. Score 5 min: 9. - General Info. Date of Service: 04/20/18. Functional Status: Reports: Pain Controlled. - Review of Systems. General: Reports: No Symptoms. HEENT: Reports: No Symptoms. Pulmonary: Reports: No Symptoms. Cardiovascular: Reports: No Symptoms. Gastrointestinal: Reports: No Symptoms. Genitourinary: Reports: No Symptoms. Musculoskeletal: Reports: No Symptoms. Skin: Reports: No Symptoms. Neurological: Reports: No Symptoms. Psychiatric: Reports: No Symptoms. - Patient Data. Vitals - Most Recent: Last Vital Signs. Temp. Pulse 81 05/26/ 18 02:32. Resp 16 04/20/18 02:32. BP 124/80 04/20/18 02:32. Pulse Ox 98 02:32. Weight - Most Recent: 226 lb. I&O - Last 24 Hours: Intake & Output. 04/19/1805. 22:5906:5914:59. Intake [id number]. [id number]. Lab Results Last 24 Hours: Laboratory Results - last 24 hr. Range/Units. 02:15. WBC 10.66 H (3.98-10.04) K/mm3. RBC 4.72 (3.98-5.22 ) M/mm3. Hgb 10.1 L (11.2-15.7) gm/L. Hct 32.7 L (34.1-44.9) %. MCV 69.3 L (79.4-94.8) fl. MCH 21.4 L (25.6-32.2) pg. MCHC 30.9 L (32.2-35.5) g/dl. RDW Std Deviation 46.9 H (36.4-46.3) fL. Plt Count 315 (182-369) K/mm3. MPV 10.8 (9.4-12.3) fl. Neut % (Auto) 75.9 H (34.0-71.1) %. Lymph % (Auto) 14.1 L (19.3-51.7) %. [place] % (Auto) 8.4 (4.7-12.5) %. Eos % (Auto) 1.2 (0.7- 5.8). Baso % (Auto) 0.1 (0.1-1.2) %. Neut # (Auto) 8.09 H (1.56-6.13) K/ mm3. Lymph # (Auto) 1.50 (1.18-3.74) K/mm3. [place] # (Auto) 0.90 H (0.24-0.36) K/mm3. Eos # (Auto) 0.13 (0.04-0.36) K/mm3. Baso # (Auto) 0.01 (0.01-0.08) K/mm3. Manual Slide Review Abnormal smear. Med Orders - Current: Current Medications. Diphenhydramine HCl (Benadryl) 25 mg IVPUSH Q6H PRN. PRN Reason : Pruritis. Ephedrine Sulfate (Ephedrine Sulfate) 5 mg IVPUSH ASDIRECTED PRN. PRN Reason: Hypotension. Fentanyl (Sublimaze) 100 mcg EPIDUR ONETIME PRN. PRN Reason: Pain. Last Admin: 04/20/18 04:04 Dose: 100 mcg. Fentanyl/ Bupivacaine HCl (Fentanyl/Bupivacaine/Ns 2 Mcg-0.125% 100 Ml) 100 ml EPIDUR ASDIRECTED [place]ON. Last Admin: 04/20/18 04:04 Dose: 100 ml. Lactated Ringer's ( Ringers, Lactated) 1,000 mls @ 100 mls/hr IV ASDIRECTED [place]ANDON. Last Admin: 04/20 06:34 Dose: 100 mls/hr. Oxytocin/Lactated Ringer's (Pitocin In Lr 10 Units /1,000 Ml) 10 unit in 1,000 mls @ 500 mls/hr IV .CONTINUOUS [place]ANDON. Ondansetron HCl (Zofran) 4 mg IVPUSH ONETIME PRN. PRN Reason: Nausea/Vomiting. Sodium Chloride (Saline Flush) 10 ml FLUSH ASDIRECTED PRN. PRN Reason: Keep Vein Open. - Problem List & Annotations. (1) 39 weeks gestation of . SNOMED Code(s): 14978601. Code(s): Z3A.39 - 39 WEEKS GESTATION OF Status: Acute Current Visit: Yes. (2) Meconium stained amniotic fluid, delivered, current hospitalization. SNOMED Code(s): 124382483. Code(s): O77.0 - LABOR AND DELIVERY COMPLICATED BY MECONIUM IN AMNIOTIC FLUID Status: Acute Current Visit: Yes. (3) Nuchal cord, delivered, current hospitalization. SNOMED Code(s): 781198885, 700545859. Code(s): O69.81X0 - LABOR AND DEL COMP BY CORD AROUND NECK, W/O COMPRSN, UNSP Status: Acute Current Visit: Yes. - Problem List Review. Problem List Initiated/Reviewed/Updated: No. - My Orders. Last 24 Hours: My Active Orders. 04/20/18 02:09. Patient Status [ADT ] Routine. Activity as Tolerated [RC] PFP. Communication Order [RC] ASDIRECTED. Notify Provider [RC] PFP. Notify Provider [RC] PRN. Vital Signs [ RC] PER UNIT ROUTINE. BLOOD BANK HOLD SPECIMEN [BBK] Routine. Sodium Chloride 0.9% [Saline Flush] 10 ml FLUSH ASDIRECTED PRN. Electronic Heart Tones Ext w TOCO [WOMSER] Routine. Electronic Heart Tones Internal [WOMSER] Per Unit Routine. Peripheral IV Insertion Adult [OM.PC] Routine. Resuscitation Status Routine. 04/20/18 02:10. Heart Tones [RC] ASDIRECTED. Peripheral IV Care [RC] . DIRECTED. 04/20/18 02:15. Lactated Ringers [Ringers, Lactated] 1,000 ml IV ASDIRECTED. Oxytocin/Lactated Ringers [ Pitocin in LR 10 Units/1,000 ML] 10 unit in 1,000 ml IV .CONTINUOUS. - Plan. Plan:: Plan delivery - Discharge Data Discharge Date: 04/21/18 Discharge Disposition: Home, Self-Care 01 Condition: Good - Discharge Diagnosis/Problem(s) (1) 39 weeks gestation of SNOMED Code(s): 70491989 ICD Code: Z3A.39 - 39 WEEKS GESTATION OF Status: Acute Current Visit: Yes (2) Meconium stained amniotic fluid, delivered, current hospitalization SNOMED Code(s): 983178530 ICD Code: O77.0 - LABOR AND DELIVERY COMPLICATED BY MECONIUM IN AMNIOTIC FLUID Status: Acute Current Visit: Yes (3) Nuchal cord, delivered, current hospitalization SNOMED Code(s): 599620708, 227026109 ICD Code: O69.81X0 - LABOR AND DEL COMP BY CORD AROUND NECK, W/O COMPRSN, UNSP Status: Acute Current Visit: Yes - Patient Summary/Data Complications: None Consults: None Hospital Course: Uneventful - Patient Instructions Diet: Regular Diet as Tolerated Driving: Do Not Drive (x48 hrs) Showering/Bathing: May Shower Notify Provider of: Fever, Increased Pain, Swelling and Redness, Drainage, Nausea and/or Vomiting - Discharge Plan Home Medications: Home Meds Iron 5 mg PO DAILY 08/28/15 [History] Vit with Ca/FA/Iron [ Plus Iron] 1 each PO DAILY #30 tablet 03/10 [Rx] Chlorhexidine Gluconate [Paroex] 473 ml MM BID #1 bottle 01/24/17 [Rx] Clarissa Valentine [Tucks] 1 pad TOP ASDIRECTED PRN pad 04/21/18 [Rx] Referrals: Sparkle Jones MD [Physician] - (call for appointment) - Discharge Summary/Plan Comment DC Time >30 min.: No - Patient Data Vitals - Most Recent: Last Vital Signs Temp 96.4 F 04/21/18 02:43 Pulse 68 04/21/18 02:43 Resp 16 04/21/18 02:43 BP 114/76 04/21/18 02:43 Pulse Ox 98 04/21/18 02:43 Weight - Most Recent: 226 lb I&O - Last 24 hours: Intake & Output 04/20/18 04/21/18 04/21/18 22:59 06:59 14:59 Intake Total 120 Balance 120 Med Orders - Current: Current Medications Benzocaine/Menthol (Dermoplast Pain Relief [place]) 56 gm TOP ASDIRECTED PRN PRN Reason: Pain Last Admin: 04/20/18 22:30 Dose: 1 canister Diphenhydramine HCl (Benadryl) 25 mg IVPUSH Q6H PRN PRN Reason: Pruritis Ephedrine Sulfate (Ephedrine Sulfate) 5 mg IVPUSH ASDIRECTED PRN PRN Reason: Hypotension Fentanyl (Sublimaze) 100 mcg EPIDUR ONETIME PRN PRN Reason: Pain Last Admin: 04/20/18 04:04 Dose: 100 mcg Fentanyl/Bupivacaine HCl (Fentanyl/Bupivacaine/Ns 2 Mcg-0.125% 100 Ml) 100 ml EPIDUR ASDIRECTED [place] Last Admin: 04/20/18 04:04 Dose: 100 ml Lactated Ringer's (Ringers, Lactated) 1,000 mls @ 100 mls/hr IV ASDIRECTED [place] Last Admin: 04/20/18 06:34 Dose: 100 mls/hr Oxytocin/Lactated Ringer's (Pitocin In Lr 10 Units/1,000 Ml) 10 unit in 1,000 mls @ 500 mls/hr IV .CONTINUOUS [facility] Ibuprofen (Motrin) 600 mg PO Q4H PRN PRN Reason: Pain or mild fever Last Admin: 04/20/18 22:31 Dose: 600 mg Ondansetron HCl (Zofran) 4 mg IVPUSH ONETIME PRN PRN Reason: Nausea/Vomiting Sodium Chloride (Saline Flush) 10 ml FLUSH ASDIRECTED PRN PRN Reason: Keep Vein Open Clarissa Valentine (Tucks) 1 pad TOP ASDIRECTED PRN PRN Reason: Hemorrhoid pain Last Admin: 04/20/18 22:32 Dose: 1 container
--- NOTE | 2018-04-22 16:06 | PCM48HPAN ---
Post Anesthesia Note - EVALUATION WITHIN 48HRS OF ANESTHETIC Vital Signs in Normal Range: Yes Patient Participated in Evaluation: Yes Respiratory Function Stable: Yes Airway Patent: Yes Cardiovascular Function Stable: Yes Hydration Status Stable: Yes Pain Control Satisfactory: Yes Nausea and Vomiting Control Satisfactory: Yes Mental Status Recovered: Yes - COMMENTS/OBSERVATIONS Free Text/Narrative:: Patient discharged. No complications noted.
== END 2018-04-21 13:35 | disposition home or self-care (01) | DRG 560 ==
LOC: JD.OB 01:28 → JD.OBCHECK 01:28 → JD.OB 02:09 → OBSVTOIN 08:13 → JD.OB 15:16
PROVIDERS: ADMIT Obstetrics & Gynecology; ATTEND Obstetrics & Gynecology
PROC: 10E0XZZ Delivery of Products of Conception, External Approach (ICD-10-PCS; principal; 2018-04-20)
PROC: 00HU33Z Insertion of Infusion Device into Spinal Canal, Percutaneous Approach (ICD-10-PCS; 2018-04-20)
PROC: 3E0R3BZ Introduction of Anesthetic Agent into Spinal Canal, Percutaneous Approach (ICD-10-PCS; 2018-04-20)
DX: O77.0 Labor and delivery complicated by meconium in amniotic fluid (principal); O69.81X0 Labor and delivery complicated by cord around neck, without compression, not applicable or unspecified; Z3A.39 39 weeks gestation of pregnancy; Z37.0 Single live birth; Z87.891 Personal history of nicotine dependence
CPT/HCPCS: 36415; 51702; 59025; 59409; 85025; A9270-GY; J3010; J7120

== ENCOUNTER 2020-01-10 06:14 | Emergency (ER) | payer BC, MEDICAID ==
[2020-01-10 06:26] VITALS: BP 114/67; PULSE 85
[2020-01-10] MEDS ORDERED: Ondansetron 4 MG/2 ML SDV IVPUSH ONE (06:39)
[2020-01-10] MEDS ORDERED: Sodium Chloride 0.9% 10 ML Syringe FLUSH PRN (06:39)
[2020-01-10] MEDS ORDERED: Ketorolac 30 MG/ML SDV IVPUSH ONE (06:40)
[2020-01-10] MEDS ORDERED: HYDROmorphone 0.5 MG/0.5 ML Syringe IVPUSH ONE (06:40)
[2020-01-10] MEDS ORDERED: Sodium Chloride 0.9% 1,000 ML IV SCH (06:45)
--- NOTE | 2020-01-10 06:45 | EDM.PDOC ---
<Jeffry Mon A - Last Filed: 01/10/20 06:41> ED HPI GENERAL MEDICAL PROBLEM - General Chief Complaint: Flank Pain Stated Complaint: R SIDE FLANK PAIN Time Seen by Provider: 01/10/20 06:35 Source of Information: Reports: Patient History Limitations: Reports: No Limitations - History of Present Illness INITIAL COMMENTS - FREE TEXT/NARRATIVE: The patient presents with right flank and right sided abdominal pain. This started about 4 days ago. The pain comes and goes and it is severe at times. She has no nausea or vomiting with it. She had some hematuria. She has no dysuria or diarrhea. She has no history of kidney stones. She still has her gallbladder and appendix. She is not due for her period for another week. Onset: Gradual Duration: Day(s): (4) Location: Reports: Abdomen, Back Quality: Reports: Sharp Severity: Severe Improves with: Reports: None Worsens with: Reports: None Associated Symptoms: Reports: No Other Symptoms Right Flank Pain Score (Numeric/FACES): 8 - Related Data Allergies Allergy/AdvReac Type Severity Reaction Status Date / Time No Known Allergies Allergy Verified 01/10/20 07:06 Home Meds: Home Meds . [No Known Home Meds] 01/10/20 [History] Past Medical History HEENT History: Reports: None Cardiovascular History: Reports: None Respiratory History: Reports: None Gastrointestinal History: Reports: None Genitourinary History: Reports: UTI, Recurrent Other Genitourinary History: No UTIs with this , yet, many prior and with prior pregnancies. 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 No depression s/s this . Endocrine/Metabolic History: Reports: None Hematologic History: Reports: Anemia, Other (See Below) Other Hematologic History: Received an Iron Infusion @ [facility] this secondary to anemia. Immunologic History: Reports: None Oncologic (Cancer) History: Reports: None Dermatologic History: Reports: None - Infectious Disease History Infectious Disease History: Reports: Chicken Pox - Past Surgical History Head Surgeries/Procedures: Reports: None HEENT Surgical History: Reports: Oral Surgery Other HEENT Surgeries/Procedures: [place] teeth extracted 2009 Cardiovascular Surgical History: Reports: None Respiratory Surgical History: Reports: None GI Surgical History: Reports: None Female Surgical History: Reports: None Endocrine Surgical History: Reports: None Neurological Surgical History: Reports: None Musculoskeletal Surgical History: Reports: None Oncologic Surgical History: Reports: None Dermatological Surgical History: Reports: None Social & Family History - Family History Family Medical History: Noncontributory - Tobacco Use Smoking Status *Q: Light Tobacco Smoker Years of Tobacco use: 8 Packs/Tins Daily: 0.3 Used Tobacco, but Quit: No - Caffeine Use Caffeine Use: Reports: Coffee, Energy Drinks Other Caffeine Use: Occasional - Recreational Drug Use Recreational Drug Use: Yes Recreational Drug Type: Reports: Marijuana/Hashish Recreational Drug Use Frequency: Socially ED ROS GENERAL - Review of Systems Review Of Systems: See Below Constitutional: Reports: No Symptoms HEENT: Reports: No Symptoms Respiratory: Reports: No Symptoms Cardiovascular: Reports: No Symptoms Endocrine: Reports: No Symptoms GI/Abdominal: Reports: Abdominal Pain. Denies: Nausea, Vomiting : Reports: Flank Pain (Right) Musculoskeletal: Reports: Back Pain ED EXAM, RENAL/ - Physical Exam Exam: See Below Exam Limited By: No Limitations General Appearance: Alert, No Apparent Distress Ears: Normal External Exam Nose: Normal Inspection Head: Atraumatic, Normocephalic Neck: Normal Inspection Respiratory/Chest: No Respiratory Distress, Lungs Clear, Normal Breath Sounds Cardiovascular: Regular Rate, Rhythm, No Edema, No Murmur GI/Abdominal: Soft, Tender (Moderate pain to the right abdomen) Back Exam: CVA Tenderness (R) Neurological: Alert, Oriented, No Motor/Sensory Deficits Course - Vital Signs Last Recorded V/S: Last Vital Signs Temp 36.5 C 01/10/20 06:20 Pulse 85 01/10/20 06:20 Resp 20 01/10/20 06:20 BP 114/67 01/10/20 06:20 Pulse Ox 100 01/10/20 06:20 - Orders/Labs/Meds Orders: Active Orders 24 hr Category Date Time Status Peripheral IV Care [RC] . DIRECTED Care 01/10/20 06:40 Active CULTURE URINE [RM] Stat Lab 01/10/20 06:29 Received Sodium Chloride 0.9% [Normal Saline] 1,000 ml Med 01/10/20 06:45 Active IV ASDIRECTED Sodium Chloride 0.9% [Saline Flush] Med 01/10/20 06:39 Active 10 ml FLUSH ASDIRECTED PRN ED Antiemetic Medication Reflex [OM.PC] Stat Oth 01/10/20 06:39 Ordered Peripheral IV Insertion Adult [OM.PC] Stat Oth 01/10/20 06:39 Ordered Medication Orders Sodium Chloride (Normal Saline) 1,000 mls @ 125 mls/hr IV ASDIRECTED LANDON Last Admin: 01/10/20 06:49 Dose: 125 mls/hr Sodium Chloride (Saline Flush) 10 ml FLUSH ASDIRECTED PRN PRN Reason: Keep Vein Open Last Admin: 01/10/20 06:51 Dose: 10 ml Labs: Laboratory Tests 01/10/20 01/10/20 01/10/20 Range/Units 06:29 06:29 06:46 WBC 4.71 (3.98-10.04) K/mm3 RBC 4.54 (3.98-5.22) M/mm3 Hgb 8.6 L D (11.2-15.7) gm/dl Hct 30.2 L (34.1-44.9) % MCV 66.5 L (79.4-94.8) fl MCH 18.9 L (25.6-32.2) pg MCHC 28.5 L (32.2-35.5) g/dl RDW Std Deviation 42.3 (36.4-46.3) fL Plt Count 429 H D (182-369) K/mm3 MPV 10.1 (9.4-12.3) fl Neut % (Auto) 62.7 (34.0-71.1) % Lymph % (Auto) 24.8 (19.3-51.7) % [place] % (Auto) 8.3 (4.7-12.5) % Eos % (Auto) 4.0 (0.7-5.8) Baso % (Auto) 0.2 (0.1-1.2) % Neut # (Auto) 2.95 (1.56-6.13) K/mm3 Lymph # (Auto) 1.17 L (1.18-3.74) K/mm3 [place] # (Auto) 0.39 H (0.24-0.36) K/mm3 Eos # (Auto) 0.19 (0.04-0.36) K/mm3 Baso # (Auto) 0.01 (0.01-0.08) K/mm3 Manual Slide Review Abnormal smear Sodium (136-145) mEq/L Potassium (3.5-5.1) mEq/L Chloride (98-107) mEq/L Carbon Dioxide (21-32) mEq/L Anion Gap (5-15) BUN (7-18) mg/dL Creatinine (0.55-1.02) mg/dL Est Cr Clr Drug Dosing mL/min Estimated GFR (MDRD) (>60) mL/min BUN/Creatinine Ratio (14-18) Glucose (74-106) mg/dL Calcium (8.5-10.1) mg/dL Total Bilirubin (0.2-1.0) mg/dL AST (15-37) U/L ALT (14-59) U/L Alkaline Phosphatase (46-116) U/L Total Protein (6.4-8.2) g/dl Albumin (3.4-5.0) g/dl Globulin gm/dL Albumin/Globulin Ratio (1-2) Lipase (73-393) U/L Urine Color Yellow (Yellow) Urine Appearance Clear (Clear) Urine pH 7.0 (5.0-8.0) Ur Specific [place] 1.025 (1.005-1.030) Urine Protein Trace H (Negative) Urine Glucose (UA) Negative (Negative) Urine Ketones Negative (Negative) Urine Occult Blood 3+ H (Negative) Urine Nitrite Negative (Negative) Urine Bilirubin Negative (Negative) Urine Urobilinogen 0.2 (0.2-1.0) Ur Leukocyte Esterase Trace H (Negative) Urine RBC 10-20 H (0-5) /hpf Urine WBC 5-10 H (0-5) /hpf Ur Epithelial Cells 0-5 (0-5) /hpf Urine Bacteria Few (FEW) /hpf Urine Mucus Few (FEW) /hpf Urine HCG, Qual Negative (NEGATIVE) 01/10/20 Range/Units 06:46 WBC (3.98-10.04) K/mm3 RBC (3.98-5.22) M/mm3 Hgb (11.2-15.7) gm/dl Hct (34.1-44.9) % MCV (79.4-94.8) fl MCH (25.6-32.2) pg MCHC (32.2-35.5) g/dl RDW Std Deviation (36.4-46.3) fL Plt Count (182-369) K/mm3 MPV (9.4-12.3) fl Neut % (Auto) (34.0-71.1) % Lymph % (Auto) (19.3-51.7) % [place] % (Auto) (4.7-12.5) % Eos % (Auto) (0.7-5.8) Baso % (Auto) (0.1-1.2) % Neut # (Auto) (1.56-6.13) K/mm3 Lymph # (Auto) (1.18-3.74) K/mm3 [place] # (Auto) (0.24-0.36) K/mm3 Eos # (Auto) (0.04-0.36) K/mm3 Baso # (Auto) (0.01-0.08) K/mm3 Manual Slide Review Sodium 143 (136-145) mEq/L Potassium 3.9 (3.5-5.1) mEq/L Chloride 106 (98-107) mEq/L Carbon Dioxide 27 (21-32) mEq/L Anion Gap 13.9 (5-15) BUN 15 (7-18) mg/dL Creatinine 0.7 (0.55-1.02) mg/dL Est Cr Clr Drug Dosing 105.17 mL/min Estimated GFR (MDRD) > 60 (>60) mL/min BUN/Creatinine Ratio 21.4 H (14-18) Glucose 90 (74-106) mg/dL Calcium 8.3 L (8.5-10.1) mg/dL Total Bilirubin 0.5 (0.2-1.0) mg/dL AST 9 L (15-37) U/L ALT 19 (14-59) U/L Alkaline Phosphatase 85 (46-116) U/L Total Protein 7.6 (6.4-8.2) g/dl Albumin 3.7 (3.4-5.0) g/dl Globulin 3.9 gm/dL Albumin/Globulin Ratio 1.0 (1-2) Lipase 122 (73-393) U/L Urine Color (Yellow) Urine Appearance (Clear) Urine pH (5.0-8.0) Ur Specific [place] (1.005-1.030) Urine Protein (Negative) Urine Glucose (UA) (Negative) Urine Ketones (Negative) Urine Occult Blood (Negative) Urine Nitrite (Negative) Urine Bilirubin (Negative) Urine Urobilinogen (0.2-1.0) Ur Leukocyte Esterase (Negative) Urine RBC (0-5) /hpf Urine WBC (0-5) /hpf Ur Epithelial Cells (0-5) /hpf Urine Bacteria (FEW) /hpf Urine Mucus (FEW) /hpf Urine HCG, Qual (NEGATIVE) Meds: Medications Generic Name Dose Route Start Last Admin Trade Name Freq PRN Reason Stop Dose Admin Sodium Chloride 1,000 mls @ 125 mls/hr 01/10/20 06:45 01/10/20 06:49 Normal Saline IV 125 mls/hr ASDIRECTED LANDON Administration Sodium Chloride 10 ml 01/10/20 06:39 01/10/20 06:51 Saline Flush FLUSH 10 ml ASDIRECTED PRN Administration Keep Vein Open Discontinued Medications Generic Name Dose Route Start Last Admin Trade Name Freq PRN Reason Stop Dose Admin Hydromorphone HCl 0.5 mg 01/10/20 06:40 01/10/20 06:54 Dilaudid IVPUSH 01/10/20 06:41 0.5 mg ONETIME ONE Administration Ketorolac Tromethamine 30 mg 01/10/20 06:40 01/10/20 06:52 Toradol IVPUSH 01/10/20 06:41 30 mg ONETIME ONE Administration Ondansetron HCl 4 mg 01/10/20 06:39 01/10/20 06:50 Zofran IVPUSH 01/10/20 06:40 4 mg ONETIME ONE Administration - Re-Assessments/Exams Free Text/Narrative Re-Assessment/Exam: 01/10/20 06:44 I ordered an IV NS at 125mL/hr, zofran 4mg IV, dilaudid 0.5mg IV, toradol 30mg IV, labs, UA and a CT of her abdomen and pelvis without contrast to look for a kidney stone. It is change of shift. Dr Gant to take over. Departure - Departure Disposition: Home, Self-Care 01 Clinical Impression: Anemia, Dysmenorrhea - Discharge Information Referrals: Annie Sequeira MD [Ordering Only Provider] - Forms: ED Department Discharge Additional Instructions: You were seen in the emergency room for 4 days of right flank and lower right abdominal pain, along with menstrual spotting. Workup in the ER included blood work, a urinalysis, a urine test, and a CT scan of your abdomen and pelvis without contrast. Your workup found that you are anemic, most likely due to low iron. We recommend that you start taking [id number] iron along with over-the- counter vitamin C. The remainder of your workup was unremarkable, and does not explain the cause of your pain. You do not have a kidney stone. You do not have a urinary tract infection. You do not have appendicitis. Based on your history, physical exam, and ER tests, the cause of your pain is most likely due to dysmenorrhea = menstrual cramps. We recommend that you take [id number] ibuprofen, 2-3 tablets (400-600 mg) every 8 hours, with food, as needed for discomfort. If your symptoms persist, please follow-up with your PCP, Dr. Annie Sequeira, for further evaluation. If any other problems, please do not hesitate to return to the ER. Sepsis Event Note - Evaluation Sepsis Screening Result: No Definite Risk - Focused Exam Vital Signs: Vital Signs Temp Pulse Resp BP Pulse Ox 01/10/20 06:20 36.5 C 85 20 114/67 100 Date Exam was Performed: 01/10/20 Time Exam was Performed: 06:41 - My Orders Last 24 Hours: My Active Orders 01/10/20 06:29 CULTURE URINE [RM] Stat - Assessment/Plan Last 24 Hours: My Active Orders 01/10/20 06:29 CULTURE URINE [RM] Stat <Tevin Gant - Last Filed: 01/10/20 09:36> ED HPI GENERAL MEDICAL PROBLEM - History of Present Illness INITIAL COMMENTS - FREE TEXT/NARRATIVE: Case assumed from Dr. Mon. As above, the patient reports right flank and right lower quadrant abdominal pain, coming and going for the past 4 days. She tells me that her pain is made worse with movement, better if she remains still or applies a heating pad. She reports spotting for the past month, finding both fresh and brown/old blood when she wipes. Her LMP was 12/27/2019, and if she is , she is not aware of it. Past Medical History : 4 Para: 4 Social & Family History - Tobacco Use Years of Tobacco use: 10 Packs/Tins Daily: 0.2 Packs/Tins Daily Comment: Down from 11/27 ppd - Alcohol Use Alcohol Use History: Yes Alcohol Use Frequency: Socially - Recreational Drug Use Recreational Drug Use: Yes Drug Use in Last 12 Months: Yes Recreational Drug Type: Reports: Marijuana/Hashish (eats edibles twice a year - last = early Dec 2019) - Living Situation & Occupation Living situation: Reports: , with Significant Other (Boyfriend), with Family (4 kids) Occupation: Unemployed ED ROS GENERAL - Review of Systems Review Of Systems: Comprehensive ROS is negative, except as noted in HPI. Course - Re-Assessments/Exams Free Text/Narrative Re-Assessment/Exam: 01/10/20 08:04 The patient's CBC is remarkable for a H/H depressed at 8.6/30.2, and platelets elevated at 429,000, with the remainder of her CBC being unremarkable. Her anemia is microcytic and hypochromic. Her CMP is unremarkable. Her lipase is within normal limits at 122. Her urinalysis is remarkable for 3+ occult blood with 10-20 RBCs, trace Percocet esterase with 5-10 WBCs, nitrate negative with few bacteria, and 0-5 epithelial cells. Her urine test is negative. The patient's anemia is consistent with iron deficiency. It is not severe enough to justify a PRBC transfusion, however, I will advise the patient to start taking [id number] iron and vitamin C. I will recommend that her anemia be monitored. The patient's urinalysis is not consistent enough with a UTI to justify antibiotics, however, I have ordered a urine culture. 01/10/20 08:53 CT of the abdomen and pelvis without contrast is read by Dr. Yusuf as: 1. No renal calculi, ureteral dilatation or ureteral stone is seen. 2. Slight increased stool within the colon. 3. Nothing acute is appreciated on noncontrast CT study of the abdomen and pelvis performed is a ureteral stone protocol. No etiology is appreciated to explain the patient's right flank pain. The body of the report reads "Appendix is seen and appears normal." 01/10/20 09:28 Test results discussed with the patient and her friend. As above, today's workup is unremarkable and does not explain the cause of her pain, however, I reassured the patient that we have effectively ruled out a medical emergency. The patient tells me that her pain feels like cramps, and, compared with her irregular bleeding this month, I suspect that the patient is suffering from dysmenorrhea. I am recommending that she take [id number]-[id number] ibuprofen as needed for discomfort. The patient will follow-up with her PCP. Departure - Departure Time of Disposition: 09:33 Condition: Good - Discharge Information *PRESCRIPTION DRUG MONITORING PROGRAM REVIEWED*: Not Applicable *COPY OF PRESCRIPTION DRUG MONITORING REPORT IN PATIENT JAMES: Not Applicable Sepsis Event Note - Focused Exam Date Exam was Performed: 01/10/20 Time Exam was Performed: 09:28 - My Orders Last 24 Hours: My Active Orders 01/10/20 06:29 CULTURE URINE [RM] Stat - Assessment/Plan Last 24 Hours: My Active Orders 01/10/20 06:29 CULTURE URINE [RM] Stat
--- NOTE | 2020-01-10 08:12 | CT ---
CT abdomen and pelvis Technique: Multiple axial sections were obtained from above the dome of the diaphragm inferiorly through the pubic symphysis. Intravenous and oral contrast was not utilized. Study has been performed as a ureteral stone protocol. Findings: Kidneys show no abnormal calcifications. No ureteral dilatation or ureteral stone is seen. Lung bases show nothing acute. Noncontrast appearance of the liver and spleen appears within normal limits. Pancreas is within normal limits. Gallbladder contains no calcified gallstones. Adrenal glands show no nodule. Aorta shows no aneurysm. No retroperitoneal adenopathy is seen. Appendix is seen and appears normal. No mesenteric abnormalities are seen. No pelvic mass or adenopathy is seen. No free fluid or inflammatory change is identified. Slight increased stool is noted within the colon. Bone window settings were reviewed. Osseous structures appear within normal limits for the patient's age. Impression: 1. No renal calculi, ureteral dilatation or ureteral stone is seen. 2. Slight increased stool within the colon. 3. Nothing acute is appreciated on noncontrast CT study of the abdomen and pelvis performed as a ureteral stone protocol. No etiology is appreciated to explain the patient's right flank pain. Diagnostic code #2 This report was dictated in [place] Standard Time
== END 2020-01-10 09:44 | disposition home or self-care (01) ==
LOC: JD.ED 06:14
DX: N94.6 Dysmenorrhea, unspecified (principal); D64.9 Anemia, unspecified; F17.210 Nicotine dependence, cigarettes, uncomplicated
CPT/HCPCS: 36415; 74176; 80053; 81001; 81025; 83690; 85025; 87086; 87088; 87186; 96361; 96374; 96375; 99284; J1170; J1885; J2405; J7030

== ENCOUNTER 2020-01-13 05:21 | Emergency (ER) | payer MEDICAID ==
[2020-01-13 05:31] VITALS: BP 126/81; PULSE 89
--- NOTE | 2020-01-13 06:06 | EDM.PDOC ---
ED HPI GENERAL MEDICAL PROBLEM - General Chief Complaint: Flank Pain Stated Complaint: ABDOMINAL PAIN Time Seen by Provider: 01/13/20 05:30 Source of Information: Reports: Patient, Old Records (ED visit 01/10/2020) History Limitations: Reports: No Limitations - History of Present Illness INITIAL COMMENTS - FREE TEXT/NARRATIVE: Mrs. Barba is a very pleasant 24-year-old woman who was seen in this ED this past 01/10/2020 with a complaint at that time of right flank and right sided abdominal pain that had started 4 days prior. The pain came and went, and was severe at times. She had gross hematuria, but no dysuria. No nausea or vomiting. Work-up included a CBC, CMP, lipase, urinalysis urine test, and a CT scan of her abdomen and pelvis without contrast. Work-up was remarkable for an H/H of 8.6/30.2 and platelets elevated at 429,000. Her CMP, lipase, urinalysis, and urine test were unremarkable. The CT scan of her abdomen and pelvis found no kidney stones, slight increase stool within the colon, and was otherwise unremarkable. The patient was discharged home with a diagnosis of dysmenorrhea. She was advised to take stlq-hmz-sfhjemr ibuprofen as needed for discomfort, and follow-up with her PCP if her symptoms persisted. Urine culture from 01/10/2020 is growing 10,000-20,000 CFU/mL of E. coli multiply susceptible except to Unasyn, as well as beta Streptococcus group B. The patient now returns to the ED stating that the same pain which had initially been coming and going has now been persistent since Sunday evening, 01/10/2020. She states that she cannot sleep. She states that she has taken gpfx-wbb-dnbrbgb ibuprofen 400 mg every 4 hours, Tylenol PM, and essential oil, all without relief. No recent fever, nausea, vomiting, constipation, or diarrhea. Here in the ED, the patient's vital signs are stable, afebrile, with a normal oxygen saturation on room air. The patient's PCP is Dr. Annie Sequeira at [facility]. She did not receive an influenza vaccine this season, and declined an offer to receive one here today. Right Flank Pain Score (Numeric/FACES): 9 - Related Data Allergies Allergy/AdvReac Type Severity Reaction Status Date / Time No Known Allergies Allergy Verified 01/10/20 07:06 Home Meds: Home Meds Sulfamethoxazole/Trimethoprim [Bactrim Ds Tablet] 1 tab PO Q12H #13 tablet 01/13 [Rx] Past Medical History Psychiatric History: Reports: Depression ( - resolved) Hematologic History: Reports: Anemia - Infectious Disease History Infectious Disease History: Reports: Chicken Pox - Past Surgical History HEENT Surgical History: Reports: Oral Surgery (wisdom teeth extraction 2009) Other HEENT Surgeries/Procedures: [place] teeth extracted 2009 Social & Family History - Family History Family Medical History: Noncontributory - Tobacco Use Smoking Status *Q: Current Every Day Smoker Years of Tobacco use: 8 Packs/Tins Daily: 0.2 Packs/Tins Daily Comment: Down from 11/27 ppd - Caffeine Use Caffeine Use: Reports: Coffee, Energy Drinks Other Caffeine Use: Occasional - Alcohol Use Alcohol Use History: Yes Alcohol Use Frequency: Socially - Recreational Drug Use Recreational Drug Use: Yes Drug Use in Last 12 Months: Yes Recreational Drug Type: Reports: Marijuana/Hashish (last smoked 12/27/2019) - Living Situation & Occupation Living situation: Reports: (), with Family (4 kids) Occupation: Unemployed ED ROS GENERAL - Review of Systems Review Of Systems: Comprehensive ROS is negative, except as noted in HPI. ED EXAM, RENAL/ - Physical Exam Exam: See Below Exam Limited By: No Limitations General Appearance: Alert, WD/WN, No Apparent Distress Eye Exam: Bilateral Eye: EOMI, Normal Inspection Ears: Normal External Exam, Hearing Grossly Normal Nose: Normal Inspection Throat/Mouth: Normal Inspection, Normal Lips, Normal Voice, No Airway Compromise Head: Atraumatic, Normocephalic Neck: Normal Inspection, Full Range of Motion Respiratory/Chest: No Respiratory Distress, Lungs Clear, Normal Breath Sounds, No Accessory Muscle Use Cardiovascular: Normal Peripheral Pulses, Regular Rate, Rhythm, No Edema, No Gallop, No JVD, No Murmur, No Rub GI/Abdominal: Normal Bowel Sounds, Soft, No Organomegaly, No Distention, No Abnormal Bruit, No Mass, Tender (Suprapubic only. Entirely nontender elsewhere. ) (Female) Exam: Deferred Rectal (Female) Exam: Deferred Back Exam: Normal Inspection, Full Range of Motion, CVA Tenderness (R) (mild). No: CVA Tenderness (L) Extremities: Normal Inspection, Normal Range of Motion, No Pedal Edema, Normal Capillary Refill Neurological: Alert, Oriented, Normal Cognition, No Motor/Sensory Deficits Psychiatric: Normal Affect Skin Exam: Warm, Dry, Intact, Normal Color, No Rash Course - Vital Signs Last Recorded V/S: Last Vital Signs Temp 36.9 C 01/13/20 05:28 Pulse 89 01/13/20 05:28 Resp 16 01/13/20 05:28 BP 126/81 01/13/20 05:28 Pulse Ox 96 01/13/20 05:28 - Orders/Labs/Meds Orders: Active Orders 24 hr Category Date Time Status CULTURE URINE [RM] Stat Lab 01/13/20 06:28 Ordered Sulfamethoxazole/Trimethoprim [Septra DS] Med 01/13/20 06:27 Stat 1 tab PO ONETIME STA Medication Orders Trimethoprim/Sulfamethoxazole (Septra Ds) 1 tab PO ONETIME STA Stop: 01/13/20 06:28 Labs: Laboratory Tests 01/13/20 Range/Units 06:00 Urine Color Light yellow (Yellow) Urine Appearance Cloudy H (Clear) Urine pH 7.5 (5.0-8.0) Ur Specific [place] 1.025 (1.005-1.030) Urine Protein 3+ H (Negative) Urine Glucose (UA) Negative (Negative) Urine Ketones Negative (Negative) Urine Occult Blood 2+ H (Negative) Urine Nitrite Positive H (Negative) Urine Bilirubin Negative (Negative) Urine Urobilinogen 1.0 (0.2-1.0) Ur Leukocyte Esterase 2+ H (Negative) Urine RBC 20-30 H (0-5) /hpf Urine WBC 50-75 H (0-5) /hpf Urine WBC Clumps Moderate (NOT SEEN) /hpf Ur Squamous Epith Cells 0-5 (0-5) /hpf Urine Bacteria Moderate H (FEW) /hpf Urine Mucus Moderate H (FEW) /hpf Meds: Medications Generic Name Dose Route Start Last Admin Trade Name Freq PRN Reason Stop Dose Admin Trimethoprim/Sulfamethoxazole 1 tab 01/13/20 06:27 Septra Ds PO 01/13/20 06:28 ONETIME STA - Re-Assessments/Exams Free Text/Narrative Re-Assessment/Exam: 01/13/20 06:02 01/10/2020 is growing E. coli, 10,000-20,000 CFU/mL, please susceptible, including to trimethoprim/sulfamethoxazole, and beta Streptococcus group B. Ordinarily, 10,000-20,000 CFU/mL would not be consistent with UTI, however, studies do indicate that some patients are symptomatic with that few organisms, or even fewer. For today's purposes, I have ordered a urinalysis by clean-catch , in order to compare to the urinalysis from 01/10/2020. If the urinalysis is more consistent with a UTI, then I will be satisfied that the patient's persistent symptoms are due to a UTI, however, if her urinalysis looks similar to that of 01/10/2020, which did not look much like a UTI, then I will not have confidence that a UTI is the cause of her pain. 01/13/20 06:29 The patient's urinalysis is remarkable for 2+ occult blood with 20-30 RBCs, 2+ leukocyte esterase with 50-75 WBCs, nitrate positive with moderate bacteria, and 0-5 squamous epithelial cells. Her urinalysis is reflective of a UTI, and I am satisfied that her persistent symptoms are due to UTI. Since we have the culture and sensitivity from her UA on 01/10/2020, indicating stepped ability to read method from/sulfamethoxazole, I will start the patient oral Bactrim. Departure - Departure Time of Disposition: 06:31 Disposition: Home, Self-Care 01 Condition: Good Clinical Impression: UTI (urinary tract infection) Qualifiers: Urinary tract infection type: acute cystitis Hematuria presence: without hematuria Qualified Code(s): N30.00 - Acute cystitis without hematuria - Discharge Information *PRESCRIPTION DRUG MONITORING PROGRAM REVIEWED*: Not Applicable *COPY OF PRESCRIPTION DRUG MONITORING REPORT IN PATIENT JAMES: Not Applicable Referrals: Annie Sequeira MD [Primary Care Provider] - Forms: ED Department Discharge Additional Instructions: You were seen in the emergency room for continuous lower abdominal and right flank pain since Sunday evening. Work-up in the ER included a urinalysis, which confirmed that you have a urinary tract infection. A sample of your urine has been sent for culture. You have been started on the antibiotic Bactrim DS, and a prescription for Bactrim DS has been sent to the [facility], located just south and across the [address] from [facility]. Take 1 tablet of Bactrim every 12 hours, starting this evening, 01/13/2020, as prescribed. Finish the entire prescription unless told otherwise by a doctor. You have also been started on the pain reliever Pyridium. Pyridium is available edav-vrt-zssknsy as "Azo". You may take 1 tablet 3 times a day for 2 or 3 days, but you should not take it any longer than that. Azo will turn your urine orange, which is normal. Make sure that you stay adequately hydrated. It does not really matter what type of fluid you drink. If your symptoms fail to improve after a few days, or if they improve but then return, please follow-up with your PCP, Dr. Annie Sequeira. If any other problems, please do not hesitate to return to the ER. Sepsis Event Note - Evaluation Sepsis Screening Result: No Definite Risk - Focused Exam Vital Signs: Vital Signs Temp Pulse Resp BP Pulse Ox 01/13/20 05:28 36.9 C 89 16 126/81 96 Date Exam was Performed: 01/13/20 Time Exam was Performed: 06:29 - My Orders Last 24 Hours: My Active Orders 01/13/20 06:27 Sulfamethoxazole/Trimethoprim [Septra DS] 1 tab PO ONETIME STA 01/13/20 06:28 CULTURE URINE [RM] Stat - Assessment/Plan Last 24 Hours: My Active Orders 01/13/20 06:27 Sulfamethoxazole/Trimethoprim [Septra DS] 1 tab PO ONETIME STA 01/13/20 06:28 CULTURE URINE [RM] Stat
[2020-01-13] MEDS ORDERED: Sulfamethoxazole/Trimethoprim 800-160 MG Tab PO STA (06:27)
[2020-01-13] MEDS ORDERED: Phenazopyridine 95 MG Tab PO STA (06:36)
== END 2020-01-13 06:47 | disposition home or self-care (01) ==
LOC: JD.ED 05:21
DX: N30.00 Acute cystitis without hematuria (principal); F17.210 Nicotine dependence, cigarettes, uncomplicated
CPT/HCPCS: 81001; 87086; 87088; 87186; 99284; A9270

== ENCOUNTER 2020-10-18 11:00 | Emergency (ER) | payer MEDICAID ==
[2020-10-18 11:13] VITALS: BP 128/73; PULSE 118
[2020-10-18] MEDS ORDERED: Sodium Chloride 0.9% 10 ML Syringe FLUSH PRN (11:14)
[2020-10-18] MEDS ORDERED: HYDROmorphone 0.5 MG/0.5 ML Syringe IVPUSH ONE (11:34)
[2020-10-18] MEDS ORDERED: Ondansetron 4 MG/2 ML SDV IVPUSH ONE (11:34)
[2020-10-18] MEDS ORDERED: Sodium Chloride 0.9% 1,000 ML IV STA ×2 (11:34→13:08)
--- NOTE | 2020-10-18 11:47 | EDM.PDOC ---
ED HPI GENERAL MEDICAL PROBLEM - General Chief Complaint: Abdominal Pain Stated Complaint: ABDOMINAL AND BACK PAIN WITH FEVER Time Seen by Provider: 10/18/20 11:10 Source of Information: Reports: Patient, RN Notes Reviewed History Limitations: Reports: No Limitations - History of Present Illness INITIAL COMMENTS - FREE TEXT/NARRATIVE: Patient is a 24-year-old female presenting to the emergency department with complaints of pelvic pressure, upper abdominal, pain, left flank pain, and low back pain. She has been having problems with pelvic pressure for many weeks. States that she completed a treatment of Bactrim for urinary tract infection 2 weeks ago, but the pressure never resolved. About 4 days ago she developed the upper abdominal and left flank pain. She is also been running fevers as high as 102 at home. She complains of frequency with urination but denies any excessive burning with urination. She states that she has had recurrent urinary tract infections in the past. She denies possibility of , however she is not on control and she is sexually active. Last menstrual period began at the end of August. She denies any chronic medical conditions with the exception of anemia. She states she is on an iron supplement which often causes diarrhea, but she has had more diarrhea than normal lately. Abdomen Pain Score (Numeric/FACES): 10 - Related Data Allergies Allergy/AdvReac Type Severity Reaction Status Date / Time No Known Allergies Allergy Verified 10/18/20 11:12 Home Meds: Home Meds Acetaminophen/HYDROcodone [Bon [place]ier 325-5 MG] 1 tab PO Q4H PRN #20 tablet 10/18/20 [Rx] Ciprofloxacin [Ciprofloxacin HCl] 500 mg PO BID #14 tab 10/18/20 [Rx] busPIRone [Buspar] 15 mg PO BID 10/18/20 [History] hydrOXYzine HCL [Hydroxyzine HCl] 50 mg PO BID 10/18/20 [History] Past Medical History HEENT History: Reports: None Cardiovascular History: Reports: None Respiratory History: Reports: None Gastrointestinal History: Reports: None Genitourinary History: Reports: UTI, Recurrent Other Genitourinary History: No UTIs with this , yet, many prior and with prior pregnancies. 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 No depression s/s this . Endocrine/Metabolic History: Reports: None Hematologic History: Reports: Anemia Other Hematologic History: Received an Iron Infusion @ [facility] this secondary to anemia. Immunologic History: Reports: None Oncologic (Cancer) History: Reports: None Dermatologic History: Reports: None - Infectious Disease History Infectious Disease History: Reports: Chicken Pox - Past Surgical History HEENT Surgical History: Reports: Oral Surgery Other HEENT Surgeries/Procedures: [place] teeth extracted 2009 Cardiovascular Surgical History: Reports: None Respiratory Surgical History: Reports: None Neurological Surgical History: Reports: None Oncologic Surgical History: Reports: None Social & Family History - Family History Family Medical History: No Pertinent Family History - Tobacco Use Tobacco Use Status *Q: Current Some Day Tobacco User Years of Tobacco use: 5 Packs/Tins Daily: 0.1 - Caffeine Use Caffeine Use: Reports: None Other Caffeine Use: Occasional - Recreational Drug Use Recreational Drug Use: No - Living Situation & Occupation Living situation: Reports: (), with Family (4 kids) Occupation: Unemployed ED ROS GENERAL - Review of Systems Review Of Systems: See Below Constitutional: Reports: Fever, Chills HEENT: Reports: No Symptoms Respiratory: Reports: No Symptoms Cardiovascular: Reports: No Symptoms GI/Abdominal: Reports: Abdominal Pain (upper), Diarrhea, Nausea. Denies: Vomiting : Reports: Flank Pain (left), Other (pelvic pressure) Musculoskeletal: Reports: Back Pain (lumbar) Skin: Reports: No Symptoms Neurological: Reports: No Symptoms Psychiatric: Reports: No Symptoms Hematologic/Lymphatic: Reports: No Symptoms Immunologic: Reports: No Symptoms ED EXAM, GI/ABD - Physical Exam Exam: See Below Exam Limited By: No Limitations General Appearance: Alert, WD/WN, No Apparent Distress Respiratory/Chest: No Respiratory Distress, Lungs Clear, Normal Breath Sounds, No Accessory Muscle Use, Chest Non-Tender Cardiovascular: Normal Peripheral Pulses, Regular Rate, Rhythm, No Edema, No Gallop, No JVD, No Murmur, No Rub GI/Abdominal Exam: Normal Bowel Sounds, Soft, No Organomegaly, No Distention, No Abnormal Bruit, No Mass, Pelvis Stable, Tender (suprapubic ) Back Exam: Normal Inspection, Full Range of Motion, CVA Tenderness (L). No: CVA Tenderness (R) Neurological: Alert, Oriented, CN II-XII Intact, Normal Cognition, Normal Gait, Normal Reflexes, No Motor/Sensory Deficits Psychiatric: Normal Affect, Normal Mood Skin Exam: Warm, Dry, Intact, Normal Color, No Rash Course - Vital Signs Last Recorded V/S: Last Vital Signs Temp 99.3 F 10/18/20 11:08 Pulse 118 H 10/18/20 11:08 Resp 18 10/18/20 11:08 BP 128/73 10/18/20 11:08 Pulse Ox 98 10/18/20 11:08 - Orders/Labs/Meds Orders: Active Orders 24 hr Category Date Time Status CULTURE BLOOD [BC] Stat Lab 10/18/20 11:26 Received CULTURE BLOOD [BC] Stat Lab 10/18/20 11:37 Received CULTURE URINE [RM] Stat Lab 10/18/20 12:31 Results Blood Culture x2 Reflex Set [OM.PC] Stat Oth 10/18/20 11:14 Ordered Peripheral IV Insertion Adult [OM.PC] Stat Oth 10/18/20 11:14 Ordered Labs: Laboratory Tests 10/18/20 10/18/20 10/18/20 Range/Units 11:26 11:26 11:26 WBC 8.05 (3.98-10.04) K/mm3 RBC 4.40 (3.98-5.22) M/mm3 Hgb 7.2 L* (11.2-15.7) gm/dl Hct 25.8 L (34.1-44.9) % MCV 58.6 L D (79.4-94.8) fl MCH 16.4 L (25.6-32.2) pg MCHC 27.9 L (32.2-35.5) g/dl RDW Std Deviation 38.8 (36.4-46.3) fL Plt Count 350 D (182-369) K/mm3 Neut % (Auto) 88.0 H (34.0-71.1) % Lymph % (Auto) 3.2 L (19.3-51.7) % [place] % (Auto) 8.3 (4.7-12.5) % Eos % (Auto) 0.2 L (0.7-5.8) Baso % (Auto) 0.1 (0.1-1.2) % Neut # (Auto) 7.07 H (1.56-6.13) K/mm3 Lymph # (Auto) 0.26 L (1.18-3.74) K/mm3 [place] # (Auto) 0.67 H (0.24-0.36) K/mm3 Eos # (Auto) 0.02 L (0.04-0.36) K/mm3 Baso # (Auto) 0.01 (0.01-0.08) K/mm3 Manual Slide Review Abnormal smear Sodium 136 (136-145) mEq/L Potassium 3.0 L (3.5-5.1) mEq/L Chloride 100 (98-107) mEq/L Carbon Dioxide 21 (21-32) mEq/L Anion Gap 18.0 H (5-15) BUN 5 L (7-18) mg/dL Creatinine 0.8 (0.55-1.02) mg/dL Est Cr Clr Drug Dosing 92.02 mL/min Estimated GFR (MDRD) > 60 (>60) mL/min BUN/Creatinine Ratio 6.3 L (14-18) Glucose 118 H (74-106) mg/dL Lactic Acid 2.9 H* (0.4-2.0) mmol/L Calcium 8.2 L (8.5-10.1) mg/dL Iron (50-170) ug/dL TIBC (100-400) ug/dL % Saturation (20-55) % Transferrin (202-364) mg/dL Ferritin (8-252) ng/ml Total Bilirubin 0.6 (0.2-1.0) mg/dL AST 10 L (15-37) U/L ALT 18 (14-59) U/L Alkaline Phosphatase 79 (46-116) U/L Lactate Dehydrogenase (81-234) U/L C-Reactive Protein 3.5 H* (<1.0) mg/dL Total Protein 7.4 (6.4-8.2) g/dl Albumin 3.5 (3.4-5.0) g/dl Globulin 3.9 gm/dL Albumin/Globulin Ratio 0.9 L (1-2) Lipase (73-393) U/L Urine Color (Yellow) Urine Appearance (Clear) Urine pH (5.0-8.0) Ur Specific [place] (1.005-1.030) Urine Protein (Negative) Urine Glucose (UA) (Negative) Urine Ketones (Negative) Urine Occult Blood (Negative) Urine Nitrite (Negative) Urine Bilirubin (Negative) Urine Urobilinogen (0.2-1.0) Ur Leukocyte Esterase (Negative) Urine RBC (0-5) /hpf Urine WBC (0-5) /hpf Urine WBC Clumps (NOT SEEN) /hpf Ur Squamous Epith Cells (0-5) /hpf Urine Bacteria (FEW) /hpf Urine Mucus (FEW) /hpf Urine HCG, Qual (NEGATIVE) Blood Type Gel Antibody Screen 10/18/20 10/18/20 10/18/20 Range/Units 11:26 11:26 11:26 WBC (3.98-10.04) K/mm3 RBC (3.98-5.22) M/mm3 Hgb (11.2-15.7) gm/dl Hct (34.1-44.9) % MCV (79.4-94.8) fl MCH (25.6-32.2) pg MCHC (32.2-35.5) g/dl RDW Std Deviation (36.4-46.3) fL Plt Count (182-369) K/mm3 Neut % (Auto) (34.0-71.1) % Lymph % (Auto) (19.3-51.7) % [place] % (Auto) (4.7-12.5) % Eos % (Auto) (0.7-5.8) Baso % (Auto) (0.1-1.2) % Neut # (Auto) (1.56-6.13) K/mm3 Lymph # (Auto) (1.18-3.74) K/mm3 [place] # (Auto) (0.24-0.36) K/mm3 Eos # (Auto) (0.04-0.36) K/mm3 Baso # (Auto) (0.01-0.08) K/mm3 Manual Slide Review Sodium (136-145) mEq/L Potassium (3.5-5.1) mEq/L Chloride (98-107) mEq/L Carbon Dioxide (21-32) mEq/L Anion Gap (5-15) BUN (7-18) mg/dL Creatinine (0.55-1.02) mg/dL Est Cr Clr Drug Dosing mL/min Estimated GFR (MDRD) (>60) mL/min BUN/Creatinine Ratio (14-18) Glucose (74-106) mg/dL Lactic Acid (0.4-2.0) mmol/L Calcium (8.5-10.1) mg/dL Iron 11 L (50-170) ug/dL TIBC 368 (100-400) ug/dL % Saturation 3 L (20-55) % Transferrin 294 (202-364) mg/dL Ferritin 8 (8-252) ng/ml Total Bilirubin (0.2-1.0) mg/dL AST (15-37) U/L ALT (14-59) U/L Alkaline Phosphatase (46-116) U/L Lactate Dehydrogenase 149 (81-234) U/L C-Reactive Protein (<1.0) mg/dL Total Protein (6.4-8.2) g/dl Albumin (3.4-5.0) g/dl Globulin gm/dL Albumin/Globulin Ratio (1-2) Lipase (73-393) U/L Urine Color (Yellow) Urine Appearance (Clear) Urine pH (5.0-8.0) Ur Specific [place] (1.005-1.030) Urine Protein (Negative) Urine Glucose (UA) (Negative) Urine Ketones (Negative) Urine Occult Blood (Negative) Urine Nitrite (Negative) Urine Bilirubin (Negative) Urine Urobilinogen (0.2-1.0) Ur Leukocyte Esterase (Negative) Urine RBC (0-5) /hpf Urine WBC (0-5) /hpf Urine WBC Clumps (NOT SEEN) /hpf Ur Squamous Epith Cells (0-5) /hpf Urine Bacteria (FEW) /hpf Urine Mucus (FEW) /hpf Urine HCG, Qual (NEGATIVE) Blood Type O POSITIVE Gel Antibody Screen Negative 10/18/20 10/18/20 10/18/20 Range/Units 11:28 11:28 13:13 WBC (3.98-10.04) K/mm3 RBC (3.98-5.22) M/mm3 Hgb (11.2-15.7) gm/dl Hct (34.1-44.9) % MCV (79.4-94.8) fl MCH (25.6-32.2) pg MCHC (32.2-35.5) g/dl RDW Std Deviation (36.4-46.3) fL Plt Count (182-369) K/mm3 Neut % (Auto) (34.0-71.1) % Lymph % (Auto) (19.3-51.7) % [place] % (Auto) (4.7-12.5) % Eos % (Auto) (0.7-5.8) Baso % (Auto) (0.1-1.2) % Neut # (Auto) (1.56-6.13) K/mm3 Lymph # (Auto) (1.18-3.74) K/mm3 [place] # (Auto) (0.24-0.36) K/mm3 Eos # (Auto) (0.04-0.36) K/mm3 Baso # (Auto) (0.01-0.08) K/mm3 Manual Slide Review Sodium (136-145) mEq/L Potassium (3.5-5.1) mEq/L Chloride (98-107) mEq/L Carbon Dioxide (21-32) mEq/L Anion Gap (5-15) BUN (7-18) mg/dL Creatinine (0.55-1.02) mg/dL Est Cr Clr Drug Dosing mL/min Estimated GFR (MDRD) (>60) mL/min BUN/Creatinine Ratio (14-18) Glucose (74-106) mg/dL Lactic Acid (0.4-2.0) mmol/L Calcium (8.5-10.1) mg/dL Iron (50-170) ug/dL TIBC (100-400) ug/dL % Saturation (20-55) % Transferrin (202-364) mg/dL Ferritin (8-252) ng/ml Total Bilirubin (0.2-1.0) mg/dL AST (15-37) U/L ALT (14-59) U/L Alkaline Phosphatase (46-116) U/L Lactate Dehydrogenase (81-234) U/L C-Reactive Protein (<1.0) mg/dL Total Protein (6.4-8.2) g/dl Albumin (3.4-5.0) g/dl Globulin gm/dL Albumin/Globulin Ratio (1-2) Lipase 63 L (73-393) U/L Urine Color Light yellow (Yellow) Urine Appearance Clear (Clear) Urine pH 6.0 (5.0-8.0) Ur Specific [place] 1.020 (1.005-1.030) Urine Protein Trace H (Negative) Urine Glucose (UA) Negative (Negative) Urine Ketones Negative (Negative) Urine Occult Blood Trace-lysed H (Negative) Urine Nitrite Negative (Negative) Urine Bilirubin Negative (Negative) Urine Urobilinogen 0.2 (0.2-1.0) Ur Leukocyte Esterase 1+ H (Negative) Urine RBC 0-5 (0-5) /hpf Urine WBC 40-50 H (0-5) /hpf Urine WBC Clumps Occasional (NOT SEEN) /hpf Ur Squamous Epith Cells 0-5 (0-5) /hpf Urine Bacteria Many H (FEW) /hpf Urine Mucus Moderate H (FEW) /hpf Urine HCG, Qual Negative (NEGATIVE) Blood Type Gel Antibody Screen 10/18/20 Range/Units 15:14 WBC (3.98-10.04) K/mm3 RBC (3.98-5.22) M/mm3 Hgb (11.2-15.7) gm/dl Hct (34.1-44.9) % MCV (79.4-94.8) fl MCH (25.6-32.2) pg MCHC (32.2-35.5) g/dl RDW Std Deviation (36.4-46.3) fL Plt Count (182-369) K/mm3 Neut % (Auto) (34.0-71.1) % Lymph % (Auto) (19.3-51.7) % [place] % (Auto) (4.7-12.5) % Eos % (Auto) (0.7-5.8) Baso % (Auto) (0.1-1.2) % Neut # (Auto) (1.56-6.13) K/mm3 Lymph # (Auto) (1.18-3.74) K/mm3 [place] # (Auto) (0.24-0.36) K/mm3 Eos # (Auto) (0.04-0.36) K/mm3 Baso # (Auto) (0.01-0.08) K/mm3 Manual Slide Review Sodium (136-145) mEq/L Potassium (3.5-5.1) mEq/L Chloride (98-107) mEq/L Carbon Dioxide (21-32) mEq/L Anion Gap (5-15) BUN (7-18) mg/dL Creatinine (0.55-1.02) mg/dL Est Cr Clr Drug Dosing mL/min Estimated GFR (MDRD) (>60) mL/min BUN/Creatinine Ratio (14-18) Glucose (74-106) mg/dL Lactic Acid 1.0 (0.4-2.0) mmol/L Calcium (8.5-10.1) mg/dL Iron (50-170) ug/dL TIBC (100-400) ug/dL % Saturation (20-55) % Transferrin (202-364) mg/dL Ferritin (8-252) ng/ml Total Bilirubin (0.2-1.0) mg/dL AST (15-37) U/L ALT (14-59) U/L Alkaline Phosphatase (46-116) U/L Lactate Dehydrogenase (81-234) U/L C-Reactive Protein (<1.0) mg/dL Total Protein (6.4-8.2) g/dl Albumin (3.4-5.0) g/dl Globulin gm/dL Albumin/Globulin Ratio (1-2) Lipase (73-393) U/L Urine Color (Yellow) Urine Appearance (Clear) Urine pH (5.0-8.0) Ur Specific [place] (1.005-1.030) Urine Protein (Negative) Urine Glucose (UA) (Negative) Urine Ketones (Negative) Urine Occult Blood (Negative) Urine Nitrite (Negative) Urine Bilirubin (Negative) Urine Urobilinogen (0.2-1.0) Ur Leukocyte Esterase (Negative) Urine RBC (0-5) /hpf Urine WBC (0-5) /hpf Urine WBC Clumps (NOT SEEN) /hpf Ur Squamous Epith Cells (0-5) /hpf Urine Bacteria (FEW) /hpf Urine Mucus (FEW) /hpf Urine HCG, Qual (NEGATIVE) Blood Type Gel Antibody Screen Meds: Medications Discontinued Medications Generic Name Dose Route Start Last Admin Trade Name Freq PRN Reason Stop Dose Admin Hydromorphone HCl 0.5 mg 10/18/20 11:34 10/18/20 11:48 Dilaudid IVPUSH 10/18/20 11:35 0.5 mg ONETIME ONE Administration Sodium Chloride 1,000 mls @ 999 mls/hr 10/18/20 11:34 10/18/20 11:48 Normal Saline IV 10/18/20 12:34 999 mls/hr NOW STA Administration Ceftriaxone Sodium 1 gm/ 100 mls @ 200 mls/hr 10/18/20 12:27 10/18/20 12:54 Sodium Chloride IV 10/18/20 12:56 200 mls/hr ONETIME ONE Administration Sodium Chloride 1,000 mls @ 999 mls/hr 10/18/20 13:08 10/18/20 13:32 Normal Saline IV 10/18/20 14:08 999 mls/hr NOW STA Administration Iopamidol 50 ml 10/18/20 12:03 10/18/20 12:20 Isovue-300 (61%) IVPUSH 10/18/20 12:04 25 ml ONETIME ONE Administration Iopamidol 100 ml 10/18/20 12:03 10/18/20 12:20 Isovue-300 (61%) IVPUSH 10/18/20 12:04 100 ml ONETIME ONE Administration Ketorolac Tromethamine 30 mg 10/18/20 15:59 10/18/20 16:29 Toradol IVPUSH 10/18/20 16:00 30 mg ONETIME ONE Administration Ondansetron HCl 4 mg 10/18/20 11:34 10/18/20 11:48 Zofran IVPUSH 10/18/20 11:35 4 mg ONETIME ONE Administration Potassium Chloride 40 meq 10/18/20 13:09 10/18/20 13:33 Klor-Con M20 PO 10/18/20 13:10 40 meq ONETIME ONE Administration Sodium Chloride 10 ml 10/18/20 11:14 10/18/20 11:48 Saline Flush FLUSH 10 ml ASDIRECTED PRN Administration Keep Vein Open Sodium Chloride 10 ml 10/18/20 12:03 10/18/20 12:21 Saline Flush FLUSH 10/18/20 12:04 10 ml ONETIME ONE Administration - Re-Assessments/Exams Free Text/Narrative Re-Assessment/Exam: Patient is a 24-year-old female presenting to the emergency department with complaints of pelvic pressure and left-sided abdominal and flank pain. She verbalized a history of recurrent urinary tract infections. She was most recently treated for urinary tract infection approximately 2 weeks ago with Bactrim. She states the pelvic pressure never resolved with this and over the last 4 days, she has been having pain in her left abdomen and left flank. She is also been febrile at home with temperatures as high as 102. On triage, she was found to be tachycardic with a low-grade fever. This does raise concern for possible sepsis. Will order septic work-up including CBC, CMP, CRP, lactic acid, cultures x2, , Urinalysis, hCG. I will plan to do a CT scan of the abdomen pelvis with IV contrast only pending hCG results. Give her 1 L bolus of normal saline as well as Dilaudid 0.5 mg IV for pain 10/18/20 14:06 Collagen was significant for a hemoglobin low at 7.2, potassium 3.0, anion gap elevated 18.0, lactic acid 2.9, CRP 3.5. Urinalysis showed trace lysed occult blood, 1+ leukocyte esterase, 40-50 WBCs, many bacteria and moderate mucus. CT scan of the abdomen pelvis showed findings highly suspicious for pyelonephritis of the upper pole of the left kidney. After discussion with patient. She states that she does have chronic anemia for which she takes high doses of [id number] iron supplements. She has required Venofer infusions in the past. She states that they are in the process of getting her a referral to hematology. She has never required a blood transfusion. WBCs are normal which rules her out for sepsis. My suspicion is that her lactic acid is related to dehydration. I have ordered a second liter of normal saline as well as Rocephin 1 g IV. We were able to obtain the urine culture reports from [facility] in [place] which showed on October 07, she had a urinary tract infection with E. coli which unfortunately was resistant to Bactrim. This is likely why the infection did not clear and has progressed to pyelonephritis. We will plan to repeat a lactic acid at 1430. She states that she is feeling much better with the medications given this far. 10/18/20 16:08 Repeat lactic acid is normal at 1.0. I have ordered a dose of Toradol 30 mg IV for the patient. I will send a prescription for ciprofloxacin as culture recei rob from [facility] does show that bacteria was susceptible to this medication. Urine has been sent for culture. I also sent a prescription for Bon Wier for pain. Discussed return precautions. Discharge instructions as documented. Departure - Departure Time of Disposition: 16:09 Disposition: Home, Self-Care 01 Condition: Good Clinical Impression: Pyelonephritis - Discharge Information *PRESCRIPTION DRUG MONITORING PROGRAM REVIEWED*: Yes *COPY OF PRESCRIPTION DRUG MONITORING REPORT IN PATIENT JAMES: No Prescriptions: Ciprofloxacin [Ciprofloxacin HCl] 500 mg PO BID #14 tab Acetaminophen/HYDROcodone [[place] 325-5 MG] 1 tab PO Q4H PRN #20 tablet PRN Reason: Pain Instructions: Pyelonephritis, Adult, [id number] Referrals: PCP,None [Primary Care Provider] - Forms: ED Department Discharge Additional Instructions: You were seen in the emergency department today for pelvic pressure as well as some upper abdominal and back pain. Work-up included blood work, urinalysis, and a CT scan of your abdomen pelvis. Results your work-up were consistent with a pyelonephritis (kidney infection). Your hemoglobin was also found to be quite low today at 7.2. While in the ER, you received IV fluids as well as your first dose of antibiotic and pain meds. A prescription for ciprofloxacin antibiotic and Bon Wier for pain has been sent to [facility]. Take these medications as prescribed. Recommend that you take ibuprofen routinely to help with the discomfort and then use Bon W[place] as needed for pain not relieved by Profen. Recommend that you follow-up with your primary care provider either late this week or early next week to have your blood work rechecked and ensure that your hemoglobin is improving. Continue to take your iron supplements daily as previously prescribed. As we discussed, I do feel you would benefit from a referral to hematology, so recommend that you discuss this with your primary care provider. If you should experience any worsening symptoms such as worsening of fever, abdominal pain, dizziness, development of nausea or vomiting, you should return to the nearest emergency department for reevaluation. Sepsis Event Note (ED) - Evaluation Sepsis Screening Result: Possible Sepsis Risk - My Orders Last 24 Hours: My Active Orders 10/18/20 11:14 Blood Culture x2 Reflex Set [OM.PC] Stat Peripheral IV Insertion Adult [OM.PC] Stat 10/18/20 11:26 CULTURE BLOOD [BC] Stat 10/18/20 11:37 CULTURE BLOOD [BC] Stat 10/18/20 12:31 CULTURE URINE [RM] Stat - Assessment/Plan Last 24 Hours: My Active Orders 10/18/20 11:14 Blood Culture x2 Reflex Set [OM.PC] Stat Peripheral IV Insertion Adult [OM.PC] Stat 10/18/20 11:26 CULTURE BLOOD [BC] Stat 10/18/20 11:37 CULTURE BLOOD [BC] Stat 10/18/20 12:31 CULTURE URINE [RM] Stat
[2020-10-18] MEDS ORDERED: Iopamidol 612 MG/ML 50 ML SDV IVPUSH ONE (12:03)
[2020-10-18] MEDS ORDERED: Sodium Chloride 0.9% 10 ML Syringe FLUSH ONE (12:03)
[2020-10-18] MEDS ORDERED: Iopamidol 612 MG/ML 100 ML Bottle IVPUSH ONE (12:03)
[2020-10-18] MEDS ORDERED: cefTRIAXone 1 GM in Sodium Chloride 0.9% 100 ML IV ONE (12:27)
--- NOTE | 2020-10-18 12:52 | CT ---
PROCEDURE INFORMATION: Exam: CT Abdomen And Pelvis With Contrast Exam date and time: 10/18/2020 12:17 PM Age: 24 years old Clinical indication: Abdominal pain; Localized; Upper; Additional info: Left flank pain and pelvic pressure, also; Iv only per ordering provider TECHNIQUE: Imaging protocol: Computed tomography of the abdomen and pelvis with intravenous contrast. Radiation optimization: All CT scans at this facility use at least one of these dose optimization techniques: automated exposure control; mA and/or kV adjustment per patient size (includes targeted exams where dose is matched to clinical indication); or iterative reconstruction. Contrast material: ISOVUE 300; Contrast volume: 125 ml; Contrast route: INTRAVENOUS (IV); COMPARISON: CT Abdomen Pelvis wo Cont 01/10/2020 7:25 AM FINDINGS: Liver: Normal. No mass. Gallbladder and bile ducts: Normal. No calcified stones. No ductal dilation. Pancreas: Normal. No ductal dilation. Spleen: Normal. No splenomegaly. Adrenal glands: Normal. No mass. Kidneys and ureters: Vague area low density in the pole of the left kidney involving an area measuring approximately 6 x 2 x 3 cm in AP, transverse, and craniocaudad dimension. This is best seen on the coronal series 3, images 47-52 and on the sagittal series 4, images 79 through 84. Findings are suspicious for pyelonephritis. No urinary stones are identified. No evidence of urinary obstruction. No abscess identified. Stomach and bowel: Unremarkable. No evidence of obstruction. Appendix: No evidence of appendicitis. Intraperitoneal space: See "Reproductive" finding. Vasculature: Unremarkable. No abdominal aortic aneurysm. Lymph nodes: Unremarkable. No enlarged lymph nodes. Urinary bladder: There is a tiny pocket of gas in the urinary bladder. No bladder wall thickening identified. Reproductive: The uterus is retroverted. Small amount of free fluid in the pelvis, likely physiologic. Bones/joints: Unremarkable. No acute fracture. Soft tissues: Unremarkable. IMPRESSION: 1. Findings highly suspicious for pyelonephritis upper pole left kidney. 2. Tiny pocket of gas in the nondependent urinary bladder Thank you for allowing us to participate in the care of your patient. Dictated and Authenticated by: Alejandra Salinas MD 10/18/2020 1:49 PM Central Time ([place] & [place]) [facility]
[2020-10-18] MEDS ORDERED: Potassium Chloride 20 MEQ Tab.ER PO ONE (13:09)
[2020-10-18] MEDS ORDERED: Ketorolac 30 MG/ML SDV IVPUSH ONE (15:59)
== END 2020-10-18 16:35 | disposition home or self-care (01) ==
LOC: JD.ED 11:00
DX: N12 Tubulo-interstitial nephritis, not specified as acute or chronic (principal); F41.9 Anxiety disorder, unspecified; F32.9 Major depressive disorder, single episode, unspecified; F17.210 Nicotine dependence, cigarettes, uncomplicated; Z79.899 Other long term (current) drug therapy
CPT/HCPCS: 36415; 74177; 80053; 81001; 81025; 82728; 83540; 83605; 83615; 83690; 84466; 85025; 86140; 86850; 86900; 86901; 87040; 87086; 87088; 87186; 96365; 96366; 96375; 99284; A9270; J0696; J1170; J1885; J2405; J7030; J7050; Q9967